=== PATIENT | female | born 1955 | race Caucasian/White ===

== ENCOUNTER → 2017-01-17 | Outpatient (REF) | payer BC ==
[2017-01-17 14:28] LABS: URIC ACID 5.2 MG/DL (2.6-6.0)
== END ==
LOC: M LABNEURO 12:52
PROVIDERS: ATTEND Psychiatry & Neurology Neurology
DX: M19.90 Unspecified osteoarthritis, unspecified site (principal); G20 Parkinson's disease

== ENCOUNTER 2017-05-05 14:15 | Inpatient (IN) | payer BC ==
[~2017-05-05] VITALS: Ht 160 cm; Wt 89.9 kg
[2017-05-05] MEDS ORDERED: ROPI4TAB21 PO ×2 (14:29→18:25)
[2017-05-05] MEDS ORDERED: LEVO125T41 PO (14:29)
[2017-05-05] MEDS ORDERED: PRAV40TA2 PO (14:29)
[2017-05-05] MEDS ORDERED: MONT1GRA PO (14:29)
[2017-05-05] MEDS ORDERED: METO1TAB32 PO (14:29)
[2017-05-05] MEDS ORDERED: TRIH0.4E PO (14:29)
[2017-05-05] MEDS ORDERED: fentaNYL 100 MCG/2 ML INJECTION (J3010) IV ONE ×2 (15:15→17:00)
[2017-05-05] MEDS ORDERED: NS 500 ML IV ONE (15:15)
[2017-05-05] MEDS ORDERED: ONDANSETRON 4MG/2ML VIAL (J2405) IV ONE (15:15)
[2017-05-05 15:26] LABS: BASO % 0.5 % (0.0-1.0); EOS # 0.2 K/mm3 (0.0-0.50); LARGE UNSTAINED CELL # 0.1 K/mm3 (0.0-0.4); LARGE UNSTAINED CELL % 1.7 % (0.0-4.0); LYMPH # 1.8 K/mm3 (1.5-4.5); LYMPH % 29.6 % (24.0-44.0); MEAN CORPUSCULAR HGB CONC 33.5 g/dl (32.0-36.5); MEAN CORPUSCULAR VOLUME 83.8 fl (80.0-96.0); MONO # 0.2 K/mm3 (0.0-0.8); MONO % 3.8 % (0.0-5.0); NEUTROPHILS # 3.5 K/mm3 (1.8-7.7); NEUTROPHILS % 61.4 % (36.0-66.0); PLATELET COUNT, AUTOMATED 252 k/mm3 (150-450); RED CELL DISTRIBUTION WIDTH 14.1 % (11.5-14.5); WHITE BLOOD COUNT 5.7 K/mm3 (4.0-10.0)
[2017-05-05 15:29] LABS: INR 0.94
[2017-05-05 15:43] LABS: ALBUMIN 3.5 GM/DL (3.2-5.2); ALBUMIN/GLOBULIN RATIO 1.13 (1.00-1.93); ALKALINE PHOSPHATASE 63 U/L (45-117); ALT/SGPT 19 U/L (12-78); ANION GAP 10 MEQ/L (8-16); AST/SGOT 15 U/L (15-37); BILIRUBIN,DIRECT < 0.1 MG/DL (0.0-0.2); BILIRUBIN,TOTAL 0.2 MG/DL (0.2-1.0); BLOOD UREA NITROGEN 15 MG/DL (7-18); CALCIUM LEVEL 9.5 MG/DL (8.8-10.2); CARBON DIOXIDE LEVEL 28 MEQ/L (21-32); CHLORIDE LEVEL 106 MEQ/L (98-107); CREATININE FOR GFR 1.01 MG/DL (0.55-1.02); GLOMERULAR FILTRATION RATE 59.1 (>45); GLUCOSE, FASTING 101 MG/DL (80-110); POTASSIUM SERUM 3.5 MEQ/L (3.5-5.1); SODIUM LEVEL 144 MEQ/L (136-145); TOTAL PROTEIN 6.6 GM/DL (6.4-8.2)
[2017-05-05] MEDS ORDERED: ISOVUE-370 76% 100ML VIAL (Q9967) As Ordered ONE (16:11)
[2017-05-05] MEDS ORDERED: MORPHINE 2 MG/ML 1ML SYRINGE IV ONE (17:00)
--- NOTE | 2017-05-05 17:20 | REP ---
CT of the abdomen and pelvis with IV contrast, without bowel contrast: Comparison is 02/17/2006. The visualized lower lung polo demonstrate curvilinear scarring in the lower lobes. There is a calcified granuloma in the left lower lobe. These are unchanged. There is a 40 mm cyst at the inferior tip of the hepatic right lobe, not present previously. The previously identified cyst in the hepatic left lobe is not as well demonstrated today. The liver is otherwise unremarkable. The gallbladder, pancreas and spleen are unremarkable except for splenic calcified granulomas. The adrenals and kidneys are unremarkable. The abdominal aorta is unremarkable except for occasional calcified atheroma. There is no retroperitoneal adenopathy or mass. There is an anastomotic surgical suture ring in a proximal ascending colon compatible with colonic resection. The appendix is not identified. There is no pericolonic inflammation or abscess. There appear to be tethered small bowel loops in the left lower quadrant on coronal image 32. The small bowel loops proximal to this appear to be dilated. The small bowel loops distal to this appear to be nondilated. This may represent partial bowel obstruction. There is no no pneumoperitoneum or ascites. Pelvis: There is a hysterectomy. The vaginal cuff and adnexa are unremarkable. There are surgical clips in the adnexa bilaterally. There is no ascites or adenopathy. Impression: There has been partial colon resection in the ascending colon. There there are tethered small bowel in the left lower quadrant. The bowel proximal to this appears distended. Bowel distal to this is not distended. This may represent partial small bowel obstruction. There is an hepatic cyst as described. There is a hysterectomy and there are surgical clips in the adnexa. Hepatic cyst. There are two midline ventral hernias containing omental fat but no bowel, unchanged from the prior study, one at the umbilicus and the other just above the umbilicus. Signed by Alex Multani MD 05/05/2017 05:11 P
[2017-05-05] MEDS ORDERED: METO1TAB87 PO (18:16)
[2017-05-05] MEDS ORDERED: MONT10TA2 PO (18:16)
[2017-05-05] MEDS ORDERED: TRIH2TAB3 PO (18:25)
[2017-05-05] MEDS ORDERED: TRIA37.53 PO (18:25)
[2017-05-05] MEDS ORDERED: B COTAB3 PO (18:25)
[2017-05-05] MEDS ORDERED: OMEP20CA3 PO (18:25)
[2017-05-05] MEDS ORDERED: VITA-121 PO (18:25)
[2017-05-05] MEDS ORDERED: ASPI325T PO (18:25)
[2017-05-05] MEDS ORDERED: COLA100C5 PO (18:25)
[2017-05-05] MEDS ORDERED: MORPHINE 2 MG/ML 1ML SYRINGE IV PRN ×2 (20:45)
[2017-05-05] MEDS ORDERED: DOCUSATE SODIUM 100 MG CAP PO PRN (20:45)
[2017-05-05] MEDS ORDERED: ACETAMINOPHEN TAB 650MG DOSE (2X325MG) PO PRN (20:45)
[2017-05-05] MEDS ORDERED: METOPROLOL TART 25 MG TABLET PO SCH (21:00)
[2017-05-05] MEDS ORDERED: rOPINIRole 1MG TAB PO ONE (21:00)
[2017-05-05] MEDS: KCL 20MEQ IN D5/0.45NS 1000ML 1,000 ML IV SCH (21:30)
[2017-05-05 21:56] LABS: MAGNESIUM LEVEL 2.2 MG/DL (1.8-2.4)
[2017-05-05] MEDS ORDERED: IPRATROPIUM 0.5MG/ALBUTEROL 2.5MG INH SOL UD 3ML (DUONEB)(J7620) NEB PRN (22:15)
[2017-05-05 22:22] VITALS: BP 140/83
[2017-05-05] MEDS: TRIHEXYPHENIDYL 2 MG TAB PO SCH (23:41)
[2017-05-05] MEDS: PRAVASTATIN 20 MG TAB PO SCH (23:42)
[2017-05-05] MEDS: SENNA 8.6 MG TAB (SENOKOT) PO SCH (23:42)
[2017-05-05] MEDS: HEPARIN SOD (PORCINE) 5000 UNITS/ML VIAL SC SCH (23:43)
[2017-05-06 06:00] VITALS: BP 106/57
[2017-05-06] MEDS: HEPARIN SOD (PORCINE) 5000 UNITS/ML VIAL SC SCH ×3 (06:23→21:07)
[2017-05-06] MEDS: LEVOTHYROXINE 125MCG TABLET (0.125MG) PO SCH (06:23)
[2017-05-06 06:24] LABS: BASO % 0.2 % (0.0-1.0); EOS # 0.1 K/mm3 (0.0-0.50); EOS % 1.5 % (0.0-3.0); LARGE UNSTAINED CELL # 0.1 K/mm3 (0.0-0.4); LARGE UNSTAINED CELL % 1.2 % (0.0-4.0); LYMPH # 1.5 K/mm3 (1.5-4.5); MEAN CORPUSCULAR HEMOGLOBIN 28.2 pg (27.0-33.0); MEAN CORPUSCULAR HGB CONC 33.3 g/dl (32.0-36.5); MEAN CORPUSCULAR VOLUME 84.6 fl (80.0-96.0); MONO # 0.4 K/mm3 (0.0-0.8); MONO % 5.3 % (0.0-5.0); NEUTROPHILS # 5.7 K/mm3 (1.8-7.7); NEUTROPHILS % 73.8 % (36.0-66.0); PLATELET COUNT, AUTOMATED 238 k/mm3 (150-450); RED CELL DISTRIBUTION WIDTH 14.4 % (11.5-14.5); WHITE BLOOD COUNT 7.7 K/mm3 (4.0-10.0)
[2017-05-06 06:45] LABS: ANION GAP 5 MEQ/L (8-16); BLOOD UREA NITROGEN 14 MG/DL (7-18); CARBON DIOXIDE LEVEL 32 MEQ/L (21-32); CHLORIDE LEVEL 104 MEQ/L (98-107); CREATININE FOR GFR 0.95 MG/DL (0.55-1.02); GLOMERULAR FILTRATION RATE > 60.0 (>45); GLUCOSE, FASTING 107 MG/DL (80-110); POTASSIUM SERUM 3.2 MEQ/L (3.5-5.1); SODIUM LEVEL 141 MEQ/L (136-145)
[2017-05-06] MEDS: ONDANSETRON 4MG/2ML VIAL (J2405) IV PRN (07:57)
[2017-05-06] MEDS ORDERED: rOPINIRole 1MG TAB PO ONE (09:00)
[2017-05-06] MEDS: ROPINIROLE 4 MG PO SCH ×2 (09:00→21:08)
--- NOTE | 2017-05-06 09:51 | REP ---
KUB, ABDOMEN AND PELVIS: KUB film of abdomen and pelvis is performed. There a couple of moderately dilated small bowel loops in the left upper quadrant. There is moderate fecal material distally in the colon. There is contrast material in the bladder from recent CT scan. Abdominal clips are seen in the pelvis. There are degenerative changes of the spine. IMPRESSION: There are a couple of moderately dilated small bowel loops persisting in the left upper quadrant again suggesting some degree of small bowel obstruction. Signed by Alex Barnes MD 05/06/2017 04:40 P
[2017-05-06] MEDS: SENNA 8.6 MG TAB (SENOKOT) PO SCH ×2 (09:58→21:07)
[2017-05-06] MEDS: VITAMIN B COMPLEX/VIT C CAP PO SCH (09:58)
[2017-05-06] MEDS: TRIHEXYPHENIDYL 2 MG TAB PO SCH (09:58)
[2017-05-06] MEDS: MONTELUKAST 10 MG TAB PO SCH (09:58)
[2017-05-06] MEDS: DYAZIDE 37.5/25 CAP (TRIAM/HCTZ) PO SCH (09:59)
[2017-05-06] MEDS: PANTOPRAZOLE 40MG INJ (PROTONIX) (C9113) IV SCH (10:00)
[2017-05-06] MEDS: MIRALAX *UNIT DOSE* 17GM PACKET PO SCH (10:00)
[2017-05-06] MEDS: KCL 20MEQ IN D5/0.45NS 1000ML 1,000 ML IV SCH ×2 (10:00→21:08)
[2017-05-06] MEDS: VITAMIN D 1,000 INTERNATIONAL UNITS TABLET PO SCH (10:00)
--- NOTE | 2017-05-06 12:37 | HPE ---
DATE OF ADMISSION: 05/05/2017 TIME: Patient was seen at roughly 2000 PRIMARY CARE PROVIDER: Dr. Perkins. GENERAL SURGEON: Dr. Turner. CHIEF COMPLAINT: Nausea, vomiting, and abdominal pain. 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 Patient admits to chronic constipation, usually has a bowel movement once every 1-2 weeks and usually a bowel movement is associated with back pain; however, this time patient stated that she is having abdominal pain, which is abnormal for her. She stated the pain was 9/10 and it was sharp and constant and worse with movement. She was also very nauseous and has not been eating or drinking for the past 2 days. Patient stated that the last bowel movement was about 7 days ago and it was dark looking, which was normal for her. Otherwise, patient denies any fever or chills, any chest pain, trouble breathing, any problem with urination, blood in the urine, dysuria. Denies any recent traveling, sick contact. Denies any recent weight change. ALLERGIES: No known drug allergies. MEDICATIONS: - aspirin 325 mg one tablet by mouth daily as needed - B complex one tablet by mouth daily - vitamin D3 1000 units one tablet by mouth daily - Colace 200 mg one tablet by mouth nightly - hydrochlorothiazide with triamterene one tablet by mouth daily - levothyroxine 125 mcg by mouth daily - metoprolol 25 mg one tablet by mouth twice a day - montelukast 10 mg one tablet by mouth daily - omeprazole 20 mg one tablet by mouth twice a day - pravastatin 40 mg one tablet by mouth nightly - ropinirole 4 mg by mouth every morning - ropinirole extended release 8 mg by mouth nightly - trihexyphenidyl 2 mg by mouth three times a day PAST MEDICAL HISTORY: Includin. Chronic constipation after bowel resection. 2. Abdominal hernia from surgery. 3. Parkinson disease. 4. Asthma. 5. Osteoarthritis. 6. Hypothyroidism after resection of the thyroid due to Hurthle cell carcinoma. 7. Hyperlipidemia. 8. Bradycardia. PAST SURGICAL HISTORY: Includin. Bowel resection with part of small bowel and cecum and possibly ascending colon due to obstruction from endometrial cyst. It was done by Dr. Johnny ham in 1995. 2. Hysterectomy. 3. Thyroid resection after Hurthle cell carcinoma of the thyroid. SOCIAL HISTORY: Patient lives with her . Does not smoke, drink or use any drugs. FAMILY HISTORY: Patient's mother had uterine cancer at the age of 38, also diabetes. Her sister also had diabetes. Father at 64. REVIEW OF SYSTEMS: GENERAL: Patient denies any recent traveling or sick contact. Any fever or chills. Denies any dizziness. HEENT: Denies any changes with vision, smell, hearing or taste. CARDIOVASCULAR: Denies any chest pain, trouble breathing. PULMONARY: Denies any trouble breathing, any lung issues. GASTROINTESTINAL (GI): Admits to severe abdominal pains and chronic constipation. Also admits to nausea, vomiting, started for the past 2 days. Denies any blood in the vomitus, however. In addition, patient's vomitus appears to be coffee colored. Per patient, it was due to patient was drinking coffee this morning. Denies any blood in the stool. Last bowel movement was 7 days ago. Per patient, she has a bowel movement every 1-2 weeks. GENITOURINARY (): Denies any dysuria, blood in the urine, burning on urination. MUSCULOSKELETAL: Admits to chronic back pains, especially when she is about to have a bowel movement. ENDOCRINE: Admits to hypothyroidism after thyroid resection. HEMATOLOGY/ONCOLOGY: Patient did have a history of Hurthle cell carcinoma of the thyroid. However, denies any ease of bruising, any bleeding anywhere. Denies any weight loss. NEUROLOGICAL: Denies any change of sensations. Admits to chronically weaker on the left side. Per patient, it was due to parkinsonism. PSYCHIATRIC: Denies any anxiety, depression. PHYSICAL EXAMINATION: VITAL SIGNS: Temperature 97.5, pulse 57, respirations 18, blood pressure 126/50, oxygen was saturating at 97% on room air. GENERAL: Patient is a pleasant, obese, elderly female who was alert, awake, and oriented times three. Does not appear to be in distress, lying comfortably in bed with head elevated at 35-degree angle. HEENT: Normocephalic, atraumatic. Extraocular motor intact. Mucosa moist. NECK: Supple, no neck lymphadenopathy. CARDIOVASCULAR: Bradycardic, normal S1, S2. No murmurs. LUNGS: Clear to auscultation bilaterally. No wheezing, rales or rhonchi. ABDOMEN: Positive bowel sounds, soft, nontender. No peritoneal signs. No ecchymosis. Obese. Bowel sounds were hyperactive. EXTREMITIES: No edema, clubbing, or cyanosis. SKIN: Warm and dry. NEUROLOGIC: Cranial nerves II-XII intact. Patient does have mild weakness on her left side. LABORATORY DATA: WBC 5.7, hemoglobin 11.8, hematocrit 35.3 with platelet count of 252, and MCV of 83.8. Sodium 144, potassium 3.5, chloride 106, bicarbonate 28, anion gap 10, BUN 15, creatinine 1.1, GFR 59.1, fasting glucose 101, lactic acid 0.9, calcium 9.5, total bilirubin 0.2, direct bilirubin less than 0.1, AST 15, ALT 19, alkaline phosphatase 63, total CK 230, CK-MB 6.7, troponin less than 0.02, total protein 6.6, albumin 3.5, lipase 111. PT 12.6, INR 0.94. Urinalysis was negative. Patient had a CT of abdomen and pelvis with IV contrast only. Shows partial colon resection in the ascending colon and there is tethered small bowel in the left lower quadrant. Bowel proximal to this appeared to be distended. Bowel distal to this was not distended, and gives presentation of partial small bowel obstruction. There is a hepatic cyst and patient was status post hysterectomy. There are two midline ventral hernias containing omental fat, but no bowel, unchanged from prior study. ASSESSMENT AND PLAN: 62-year-old female with multiple comorbidities, most significantly severe chronic constipation, parkinsonism, asthma, arthritis, hypothyroidism, hyperlipidemia, presented with: 1. Severe abdominal pain with nausea, vomiting. CT of abdomen and pelvis shows partial small bowel obstruction. General surgery has been consulted. Will follow their recommendations. Continue patient on nothing by mouth. Intravenous (IV) fluid with K20 half-normal saline and D5 at a rate of 80 mL/h. Start patient on a regular bowel regimen with Colace and senna. Pain control with IV morphine 2 mg as needed and 2 mg every 4 hours as needed. 2. Chronic constipation. Patient does use Colace with senna at baseline. I have started additional bowel regimen and pending further management per general surgery. 3. Abdominal hernia from previous surgery. No issues from CT of abdomen and pelvis. Will continue to monitor. 4. Bradycardia with ventricular rate of 46. Previous EKG back in 2013 patient's heart rate was 51. Will hold patient's beta ceci for now and continue to monitor patient. We will also order echocardiogram to assess patient for any cardiomyopathy. 5. Possible coronary artery disease, however, patient denied. Patient was on beta ceci, statin and aspirin. Will hold aspirin currently due to possible procedure. Will resume patient's aspirin if confirmed no procedure. 6. History of asthma. Continue as needed DuoNeb. Patient does not require oxygen currently. 7. Osteoarthritis. Continue as needed morphine. 8. Hypothyroidism. Continue Synthroid. 9. Hyperlipidemia. Continue statin. 10. Deep venous thrombosis (DVT) prophylaxis on heparin 5000 units subcutaneously every 8 hours due to no signs of bleeding. Will hold heparin if there are any signs of bleeding, however. 11. Fluid, electrolyte, and diet. Patient is on K20, D5 half-normal saline running at 80 mL/h. Will correct any electrolyte abnormalities as needed and start patient on nothing by mouth, for sips and medications for now due to possible procedure. DISPOSITION: General surgeon, Dr. Uribe has been consulted and will follow his recommendation. Will keep patient nothing by mouth and conservative management at this point. Patient's symptom does not appear to be severe. Patient has been discussed with attending doctor, Dr. Walker. My preceptor for this patient encounter was Dr. Kevin Walker. The preceptor was physically present in the building during the encounter and was fully available as needed. All aspects of the patient interview, examination, medical decision making process, and medical care plan development were reviewed and approved by the preceptor. The preceptor is aware and concurs with the plan as stated in the body of this note and will attest to such by his/her co-signature.
[2017-05-06] MEDS: KCL 10MEQ IN 100ML SWI (KRUN) 10 MEQ in APPROPRIATE DILUENT 1 EA IV SCH ×4 (13:46→15:03)
[2017-05-06 14:00] VITALS: BP 126/61
--- NOTE | 2017-05-06 14:26 | IPN ---
DATE: 05/06/2017 SUBJECTIVE: The patient is seen and examined in the room today. Per patient, since the colon surgery and hysterectomy she has been having very abnormal bowel movement patterns, usually she will have about one bowel movement around every 10 days. Currently, the patient is in the hospital because she has not had a bowel movement for 10 days and she is also experiencing acute abdominal pain. Per patient, the pain is sharp and started yesterday during rest and it has been persistent until she arrived to the emergency room and received the pain medications. This kind of pain has never happened before. THe patient has also been complaining about persistent nausea and unable to tolerate any oral here at this moment. She tried it this morning, but she would throw it right back up. OBJECTIVE: VITAL SIGNS: Temperature is 97.9, pulse is 71, respiratory rate 20, blood pressure 106/57, pulse oximetry 97% on room air. GENERAL: Mild to moderate distress secondary to persistent nausea and abdominal discomfort. HEENT: Normocephalic, atraumatic. Extraocular motors are grossly intact. CARDIOVASCULAR: Positive S1, S2. Regular rate. LUNGS: Clear to auscultation bilaterally. ABDOMEN: I cannot reproduce the pain during physical examination. The patient had pain medications. Abdomen is soft. Hypoactive bowel sounds. EXTREMITIES: No edema. No cyanosis. LABORATORY DATA: WBC is 7.7, hemoglobin is 11, hematocrit 33, platelet count is 238. Sodium is 141, potassium 3.2, chloride is 104, carbon dioxide 32, BUN 14, creatinine 0.95, GFR greater than 60, fasting glucose 107, calcium is 9. ASSESSMENT AND PLAN: 1. Partial small bowel obstruction. The patient is on IV support. I reviewed the patient's home medications. I will try to minimize oral medications to minimal; however, the patient still needs to be on Synthroid and also on Parkinson's disease treatment. If the patient cannot tolerate those pills, I will discontinue those. General surgeon, Dr. Mendoza, has been consulted. We appreciate his assistance. 2. Hypokalemia secondary to nausea and vomiting. Currently unable to tolerate significant oral intake. We will give potassium supplement through IV. 3. Constipation, status post hysterectomy and colectomy. At baseline, the patient has one bowel movement approximately every 10 days. It has been 10 days since the last bowel movement. The patient had a bowel movement prep. Continue to monitor. 4. Abdominal hernia. No abnormalities found on the CT of the abdomen. 5. History of asthma. No exacerbations. 6. Osteoarthritis. 7. Hypothyroidism. On Synthroid. If the patient cannot take oral form, we will switch to IV formulation. 8. Parkinson's disease. Continue oral medications. 9. Hyperlipidemia. On statin. 10. Questionable history of coronary artery disease. The patient denies it. 11. Bradycardia on admission. The patient has a heart rate around 40 to 60. This morning, the patient's heart rate has been improved to 70s. Continue to monitor. At home, the patient is taking metoprolol tartrate 25 mg by mouth twice a day. Due to bradycardia, we will discontinue the medications for now. 12. Deep vein thrombosis (DVT) prophylaxis. The patient is on heparin. MTDD
--- NOTE | 2017-05-06 21:11 | ECHO ---
DATE OF PROCEDURE: 05/06/2017 REFERRING PHYSICIAN: Dr. Willson INDICATION: Abnormal ECG. HEIGHT: 160 cm WEIGHT: 85 kg DIMENSIONS: IVS: 1.1 LV: 4.2 LVPW: 1.1 LA: 3.6 Aorta: 3.2 FINDINGS: The study is of fair technical quality. Left ventricle is normal size and systolic function with estimated left ventricle ejection fraction (LVEF) around 60-65%. No segmental wall motion abnormalities are appreciated. Right ventricle is also normal size and systolic function. Left atrium is on upper limits normal size. Right atrium is probably normal. Trivial pericardial effusion is noted. Aortic valve is minimally sclerotic but has normal mobility. Mitral, tricuspid and pulmonic valves appear grossly normal. Inferior vena cava is normal size. Aortic root is normal. Aortic arch and abdominal aorta were not well seen. Doppler interrogation reveals no significant aortic stenosis or insufficiency. There is trace mitral insufficiency and no significant tricuspid insufficiency. Trace pulmonic insufficiency also seen. Mitral inflow pattern and tissue Doppler imaging of mitral annulus reveal normal diastolic function. CONCLUSIONS: 1. Study is of acceptable technical quality. 2. Normal left ventricle (LV) size and systolic function of probably normal diastolic function. 3. No significant valvular disease. 4. Normal central venous pressure. 5. Unable to estimate pulmonary artery pressure. COMMENT: Subacute bacterial endocarditis (SBE) prophylaxis is not recommended. Study does not provide obvious explanation for abnormal ECG. MTDD
[2017-05-06 22:00] VITALS: BP 127/62
[2017-05-07] MEDS: ONDANSETRON 4MG/2ML VIAL (J2405) IV PRN ×3 (05:17→21:25)
[2017-05-07 06:00] VITALS: BP 126/59
[2017-05-07] MEDS ORDERED: LevoFLOXacin 750 MG TABLET PO SCH (06:00)
[2017-05-07] MEDS: HEPARIN SOD (PORCINE) 5000 UNITS/ML VIAL SC SCH ×3 (06:05→21:08)
[2017-05-07] MEDS: LEVOTHYROXINE 125MCG TABLET (0.125MG) PO SCH (06:05)
[2017-05-07 06:26] LABS: BASO % 0.1 % (0.0-1.0); EOS # 0.1 K/mm3 (0.0-0.50); EOS % 0.8 % (0.0-3.0); LARGE UNSTAINED CELL # 0.1 K/mm3 (0.0-0.4); LARGE UNSTAINED CELL % 1.3 % (0.0-4.0); LYMPH % 14.2 % (24.0-44.0); MEAN CORPUSCULAR HGB CONC 33.2 g/dl (32.0-36.5); MEAN CORPUSCULAR VOLUME 84.4 fl (80.0-96.0); MONO # 0.4 K/mm3 (0.0-0.8); MONO % 5.2 % (0.0-5.0); NEUTROPHILS # 5.7 K/mm3 (1.8-7.7); NEUTROPHILS % 78.3 % (36.0-66.0); PLATELET COUNT, AUTOMATED 254 k/mm3 (150-450); RED CELL DISTRIBUTION WIDTH 13.9 % (11.5-14.5); WHITE BLOOD COUNT 7.3 K/mm3 (4.0-10.0)
[2017-05-07 06:35] LABS: ANION GAP 8 MEQ/L (8-16); BLOOD UREA NITROGEN 11 MG/DL (7-18); CALCIUM LEVEL 8.7 MG/DL (8.8-10.2); CARBON DIOXIDE LEVEL 29 MEQ/L (21-32); CHLORIDE LEVEL 103 MEQ/L (98-107); CREATININE FOR GFR 0.93 MG/DL (0.55-1.02); GLOMERULAR FILTRATION RATE > 60.0 (>45); GLUCOSE, FASTING 125 MG/DL (80-110); POTASSIUM SERUM 3.7 MEQ/L (3.5-5.1); SODIUM LEVEL 140 MEQ/L (136-145)
--- NOTE | 2017-05-07 09:35 | IPNPDOC ---
Subjective General Date/Time Seen The patient was seen on 05/07/17 at 09:32. Subject Chief Complaint/History The patient is a 62-year-old female admitted with a reason for visit of Small Bowel Obstruction. Reports no more abdominal cramping since evening, still feels somewhat bloated, no flatus or bms reported, mild nausea. Current Medications Current Medications Current Medications Acetaminophen (Tylenol Tab) 650 mg Q4HP PRN PO MILD PAIN OR FEVER; Start at 20:45; Stop 06/04/17 at 20:44 Albuterol/ Ipratropium (Duoneb (Ipr 0.5mg/Alb 2.5mg)) 3 ml Q2HP PRN NEB SOB/ WHEEZING; Start 05/05/17 at 22:15; Stop 06/04/17 at 22:14 Docusate Sodium (Colace) 200 mg BID PO ; Start 05/07/17 at 09:00; Stop 06/04/17 at 20:44 Docusate Sodium (Colace) 200 mg BIDP PRN PO CONSTIPATION; Start 05/05/17 at 20: 45; Stop 05/07/17 at 09:00; Status DC Heparin Sodium (Porcine) (Heparin) 5,000 units Q8H SC Last administered on 05/07 06:05; Start 05/05/17 at 22:00; Stop 05/10/17 at 21:59 Home Med (Med Rec Complete!) ASDIRECTED XX ; Start 05/05/17 at 18:30; Stop at 18:30; Status DC Levofloxacin (Levaquin) 750 mg DAILY@06 PO ; Start 05/07/17 at 06:00; Stop 05/07 at 06:00; Status DC Levothyroxine Sodium (Synthroid) 125 mcg DAILY@0600 PO Last administered on 06:05; Start 05/06/17 at 06:00; Stop 06/05/17 at 05:59 Metoprolol Tartrate (Lopressor) 25 mg BID PO ; Start 05/05/17 at 21:00; Stop at 22:06; Status DC Miscellaneous (Unresolved Patient Own Med Order) SEE LABEL COMMENTS UNRESOLVED XX ; Start 05/05/17 at 00:01; Stop 05/06/17 at 10:57; Status DC Montelukast Sodium (Singulair) 10 mg DAILY PO Last administered on 05/06/17 09 :58; Start 05/06/17 at 09:00; Stop 06/05/17 at 08:59 Morphine Sulfate (Morphine Sulfate Inj) 2 mg Q2HP PRN IV BREAKTHROUGH PAIN; Start 05/05/17 at 20:45; Stop 05/12/17 at 20:44 Morphine Sulfate (Morphine Sulfate Inj) 2 mg Q4HP PRN IV PAIN; Start 05/05/17 at 20:45; Stop 05/12/17 at 20:44 Ondansetron HCl (ZOFRAN INJection) 4 mg Q6HP PRN IV NAUSEA OR VOMITING Last administered on 05/07/17 05:17; Start 05/05/17 at 20:45; Stop 06/04/17 at 20:44 Pantoprazole Sodium (Protonix) 40 mg Q24H IV Last administered on 05/06/17 10: 00; Start 05/06/17 at 09:00; Stop 06/05/17 at 08:59 Patient Own Medication (Patient'S Own Med) ROPINIROLE ER 4MG TABL... QAM PO ; Start 05/06/17 at 09:00; Stop 06/05/17 at 08:59 Patient Own Medication (Patient'S Own Med) ROPINIROLE ER 4MG TABL... QHS PO Last administered on 05/06/17 21:08; Start 05/06/17 at 21:00; Stop 06/05/17 at 20:59 Polyethylene Glycol (Miralax) 1 pkt DAILY PO Last administered on 05/06/17 10: 00; Start 05/06/17 at 09:00; Stop 06/05/17 at 08:59 Potassium Chloride 10 meq/ IV Miscellaneous Supplies 100 ml @ 100 mls/hr Q1H IV Last administered on 05/06/17 15:03; Start 05/06/17 at 14:00; Stop at 15:59; Status DC Potassium Chloride/Dextrose/ Sod Cl 1,000 ml @ 80 mls/hr [id number] IV Last administered on 05/06/17 21:08; Start 05/05/17 at 20:45; Stop 06/04/17 at 20:44 Pravastatin Sodium (Pravachol) 40 mg QHS PO Last administered on 05/05/17 23: 42; Start 05/05/17 at 21:00; Stop 06/04/17 at 20:59; Status Future hold Senna (Senokot) 1 tab BID PO Last administered on 05/06/17 21:07; Start at 21:00; Stop 06/04/17 at 20:59 Triamterene/HCTZ (Dyazide 37.5-25 Mg) 1 ea DAILY PO Last administered on 09:59; Start 05/06/17 at 09:00; Stop 06/05/17 at 08:59 Trihexyphenidyl HCl (Artane) 2 mg TID PO Last administered on 05/06/17 09:58; Start 05/05/17 at 21:00; Stop 06/04/17 at 20:59; Status Future hold Vitamin B Complex/ Vitamin C (Therapeutic B Complex w/C) 1 cap DAILY PO Last administered on 05/06/17 09:58; Start 05/06/17 at 09:00; Stop 06/05/17 at 08:59 ; Status Future hold Vitamin D (Vitamin D) 1,000 units DAILY PO Last administered on 05/06/17 10:00 ; Start 05/06/17 at 09:00; Stop 06/05/17 at 08:59; Status Future hold Allergies Coded Allergies: No Known Allergies (Verified , 03/25/03) Objective Physical Examination Examination GENERAL APPEARANCE:Patient seen, laying in bed, awake, alert, and oriented. Comfortable, in no acute distress. SKIN: Warm and moist. HEENT: Normocephalic, atraumatic. [place] palpebral conjunctiva, anicteric sclerae. Lips and mucosa appear moist. NECK: Supple, no thyromegaly. No obvious jugular venous distention. LUNGS: Clear to auscultation bilaterally. No wheezing appreciated. HEART: No chest wall abnormalities. Regular rate and rhythm with no murmurs appreciated. ABDOMEN: Abdomen is round, soft, moderately distended, hypoactive bowel sounds, nontender on palpation . . EXTREMITIES: Extremities have no deformities. No edema identified., (+)tremors Vital Signs Vital Signs Date Time Temp Pulse Resp B/P (MAP) Pulse Ox O2 Delivery O2 Flow Rate FiO2 8/19/17 06:00 97.1 60 18 126/59 (81) 95 Room Air I&Os I&O- Last 24 Hours up to 6 AM 05/07/17 06:00 Intake Total 1080 ml Output Total 1500 ml Balance -420 ml Laboratory Data Labs 24H Laboratory Tests 2 05/07/17 06:05: White Blood Count 7.3, Red Blood Count 4.24, Hemoglobin 11.9L, Hematocrit 35.8L , Mean Corpuscular Volume 84.4, Mean Corpuscular Hemoglobin 28.0, Mean Corpuscular Hemoglobin Concent 33.2, Red Cell Distribution Width 13.9, Platelet Count 254, Neutrophils (%) (Auto) 78.3H, Lymphocytes (%) (Auto) 14.2L, Monocytes (%) (Auto) 5.2H, Eosinophils (%) (Auto) 0.8, Basophils (%) (Auto) 0.1 , Neutrophils # (Auto) 5.7, Lymphocytes # (Auto) 1.0L, Monocytes # (Auto) 0.4, Eosinophils # (Auto) 0.1, Basophils # (Auto) 0.0, Large Unclassified Cells % 1.3 , Large Unclassified Cells # 0.1, Anion Gap 8, Glomerular Filtration Rate > 60.0 , Blood Urea Nitrogen 11, Creatinine 0.93, Sodium Level 140, Potassium Level 3.7 , Chloride Level 103, Carbon Dioxide Level 29, Calcium Level 8.7L CBC/BMP Laboratory Tests 05/07/17 06:05 Red Blood Count 4.24, Mean Corpuscular Volume 84.4, Mean Corpuscular Hemoglobin 28.0, Mean Corpuscular Hemoglobin Concent 33.2, Red Cell Distribution Width 13.9 , Neutrophils (%) (Auto) 78.3 H, Lymphocytes (%) (Auto) 14.2 L, Monocytes (%) ( Auto) 5.2 H, Eosinophils (%) (Auto) 0.8, Basophils (%) (Auto) 0.1, Neutrophils # (Auto) 5.7, Lymphocytes # (Auto) 1.0 L, Monocytes # (Auto) 0.4, Eosinophils # (Auto) 0.1, Basophils # (Auto) 0.0, Calcium Level 8.7 L Impression Small bowel obstruction chronic constipation Patient was instructed to ambulate to hallways today Continue with set bowel regimen Will check xray tomorrow If no bowel function may need surgery next week. Plan / VTE VTE Prophylaxis Ordered?: Yes KRISHNA COFFMAN MD May 07, 2017 09:34
[2017-05-07] MEDS: ROPINIROLE 4 MG PO SCH ×2 (09:36→21:08)
[2017-05-07] MEDS: PANTOPRAZOLE 40MG INJ (PROTONIX) (C9113) IV SCH (09:36)
[2017-05-07] MEDS: MIRALAX *UNIT DOSE* 17GM PACKET PO SCH (09:38)
[2017-05-07] MEDS: TRIHEXYPHENIDYL 2 MG TAB PO SCH ×3 (09:38→21:25)
[2017-05-07] MEDS: DYAZIDE 37.5/25 CAP (TRIAM/HCTZ) PO SCH (09:39)
[2017-05-07] MEDS: VITAMIN B COMPLEX/VIT C CAP PO SCH (09:39)
[2017-05-07] MEDS: SENNA 8.6 MG TAB (SENOKOT) PO SCH ×2 (09:39→21:08)
[2017-05-07] MEDS: MONTELUKAST 10 MG TAB PO SCH (09:39)
[2017-05-07] MEDS: DOCUSATE SODIUM 100 MG CAP PO SCH ×2 (09:40→21:08)
[2017-05-07] MEDS: KCL 20MEQ IN D5/0.45NS 1000ML 1,000 ML IV SCH ×2 (09:40→21:09)
[2017-05-07] MEDS: VITAMIN D 1,000 INTERNATIONAL UNITS TABLET PO SCH (09:40)
--- NOTE | 2017-05-07 11:53 | ECGEPIP ---
Stationary ECG Study [facility] Test Date: 2017-05-06 Pat Name: ESTEFANY MURILLO Department: Room: [place] [address] Gender: F Rental Salesperson: JORGE : 1955 Requested By: JAMAICA RAGLAND Order Number: [id number] Reading MD: Manuel Botello Measurements Intervals [place] Rate: 50 P: 52 WI: 143 QRS: 25 QRSD: 102 T: 55 QT: 457 QTc: 420 Interpretive Statements SINUS BRADYCARDIA NON SPECIFIC STT ABNORMALITIES SIMILAR 12/21/13 Electronically Signed On 05-07-2017 11:53:21 EDT by Manuel Botello
[2017-05-07 14:00] VITALS: BP 127/75
--- NOTE | 2017-05-07 15:34 | IPN ---
DATE OF VISIT: 05/07/2017 SUBJECTIVE: The patient is seen and examined in the room today. The patient still complains about persistent nausea, but the frequency of vomiting has improved. The patient still does not have any bowel movements. Today may be more than 11 days without any bowel movement, which is not unusual for her, and still complains about abdominal discomfort. OBJECTIVE: VITAL SIGNS: Temperature is 97.1, pulse is 60, respiration 18, blood pressure 126/59, pulse oximetry 95% in room air. GENERAL: Moderate distress secondary to persistent nausea and abdominal discomfort. Alert and oriented times three. HEENT: Normocephalic, atraumatic. Extraocular motor grossly intact. CARDIOVASCULAR: Positive S1, S2. Regular rate. LUNGS: Clear to auscultation bilaterally. ABDOMEN: I cannot reproduce pain during the physical examination. Abdomen is soft. Hypoactive bowel sounds. EXTREMITIES: No edema. No sign of cyanosis. LABORATORY DATA: WBC is 7.3, hemoglobin 11.9, hematocrit 35.8, platelet count is 254. Sodium is 140, potassium 3.7, chloride is 103, carbon dioxide 29, BUN 11, creatinine 0.93, GFR greater than 60, fasting glucose 125, calcium is 8.7. ASSESSMENT AND PLAN: 1. Partial small bowel obstruction. The patient is on intravenous (IV) support. The patient is continuing to have nausea and abdominal discomfort. General surgeon, Dr. Mendoza, has been consulted. According to the recommendation, will continue medical management. If the patient does not show any improvement of symptoms, there is a possibility for surgery next week. 2. Hypokalemia secondary to frequent nausea and vomiting. The patient had a supplement. Now, potassium is within normal range. 3. Constipation, status post hysterectomy and colectomy. At the baseline, the patient has one bowel movement approximately every 10 days. Currently, the patient has a partial small bowel obstruction. 4. Abdominal hernia. Found on CT abdomen. 5. History of asthma. No exacerbation. Breathing comfortably in room air. Does not require oxygen. 6. Osteoarthritis. 7. Hypothyroidism. On Synthroid. 8. Parkinson disease. Continue oral medications. 9. Dyslipidemia. On statin. 10. Questionable history of coronary artery disease. 11. Bradycardia on admission. The patient had a repeat electrocardiogram (EKG) done yesterday evening. EKG showed sinus bradycardia without any other abnormalities. Currently, the heart rate is around 60s. Echocardiogram was performed. No abnormality was detected. 12. Deep vein thrombosis (DVT) prophylaxis. The patient is on heparin. MTDD
[2017-05-07] MEDS ORDERED: LORazepam 2 MG/ML VIAL (J2060) IV PRN (16:00)
[2017-05-07] MEDS ORDERED: ALPRAZolam 0.25 MG TAB PO PRN (16:00)
[2017-05-07] MEDS: PRAVASTATIN 20 MG TAB PO SCH (21:08)
[2017-05-07 22:00] VITALS: BP 135/77
[2017-05-08 06:00] VITALS: BP 124/59
[2017-05-08] MEDS: HEPARIN SOD (PORCINE) 5000 UNITS/ML VIAL SC SCH ×3 (06:24→23:16)
[2017-05-08] MEDS: LEVOTHYROXINE 125MCG TABLET (0.125MG) PO SCH (06:24)
[2017-05-08] MEDS: ONDANSETRON 4MG/2ML VIAL (J2405) IV PRN (06:28)
[2017-05-08 06:43] LABS: BASO % 0.3 % (0.0-1.0); EOS # 0.1 K/mm3 (0.0-0.50); EOS % 2.2 % (0.0-3.0); LARGE UNSTAINED CELL # 0.1 K/mm3 (0.0-0.4); LARGE UNSTAINED CELL % 1.1 % (0.0-4.0); LYMPH # 1.4 K/mm3 (1.5-4.5); LYMPH % 21.4 % (24.0-44.0); MEAN CORPUSCULAR HEMOGLOBIN 28.2 pg (27.0-33.0); MEAN CORPUSCULAR HGB CONC 33.8 g/dl (32.0-36.5); MEAN CORPUSCULAR VOLUME 83.2 fl (80.0-96.0); MONO # 0.5 K/mm3 (0.0-0.8); MONO % 7.8 % (0.0-5.0); NEUTROPHILS # 4.1 K/mm3 (1.8-7.7); NEUTROPHILS % 67.2 % (36.0-66.0); PLATELET COUNT, AUTOMATED 240 k/mm3 (150-450); RED CELL DISTRIBUTION WIDTH 13.8 % (11.5-14.5)
[2017-05-08 06:53] LABS: CREATININE FOR GFR 1.05 MG/DL (0.55-1.02); GLOMERULAR FILTRATION RATE 56.5 (>45); POTASSIUM SERUM 3.5 MEQ/L (3.5-5.1)
[2017-05-08] MEDS: VITAMIN D 1,000 INTERNATIONAL UNITS TABLET PO SCH (09:00)
[2017-05-08] MEDS: VITAMIN B COMPLEX/VIT C CAP PO SCH (09:00)
[2017-05-08] MEDS: PANTOPRAZOLE 40MG INJ (PROTONIX) (C9113) IV SCH (10:06)
[2017-05-08] MEDS: DOCUSATE SODIUM 100 MG CAP PO SCH ×2 (10:07→23:14)
[2017-05-08] MEDS: DYAZIDE 37.5/25 CAP (TRIAM/HCTZ) PO SCH (10:07)
[2017-05-08] MEDS: SENNA 8.6 MG TAB (SENOKOT) PO SCH ×2 (10:07→23:14)
[2017-05-08] MEDS: MONTELUKAST 10 MG TAB PO SCH (10:07)
[2017-05-08] MEDS: TRIHEXYPHENIDYL 2 MG TAB PO SCH ×3 (10:07→23:15)
[2017-05-08] MEDS: MIRALAX *UNIT DOSE* 17GM PACKET PO SCH (10:08)
[2017-05-08] MEDS: ROPINIROLE 4 MG PO SCH ×2 (10:08→23:15)
[2017-05-08] MEDS: KCL 20MEQ IN D5/0.45NS 1000ML 1,000 ML IV SCH ×2 (10:09→23:13)
--- NOTE | 2017-05-08 10:18 | IPNPDOC ---
Subjective General Date/Time Seen The patient was seen on 05/08/17 at 10:14. Subject Chief Complaint/History The patient is a 62-year-old female admitted with a reason for visit of Small Bowel Obstruction. Patient finally agreed to have ngt placed after recurent vomitting. feels much better today,nausea improved. no abdominal discomfort but still not passing flatus. Current Medications Current Medications Current Medications Acetaminophen (Tylenol Tab) 650 mg Q4HP PRN PO MILD PAIN OR FEVER; Start at 20:45; Stop 06/04/17 at 20:44 Albuterol/ Ipratropium (Duoneb (Ipr 0.5mg/Alb 2.5mg)) 3 ml Q2HP PRN NEB SOB/ WHEEZING; Start 05/05/17 at 22:15; Stop 06/04/17 at 22:14 Alprazolam (Xanax) 0.25 mg Q8HP PRN PO ANXIETY; Start 05/07/17 at 16:00; Stop 05/07/17 at 16:01; Status DC Docusate Sodium (Colace) 200 mg BID PO Last administered on 05/08/17 10:07; Start 05/07/17 at 09:00; Stop 06/04/17 at 20:44 Docusate Sodium (Colace) 200 mg BIDP PRN PO CONSTIPATION; Start 05/05/17 at 20: 45; Stop 05/07/17 at 09:00; Status DC Heparin Sodium (Porcine) (Heparin) 5,000 units Q8H SC Last administered on 05/08 06:24; Start 05/05/17 at 22:00; Stop 05/10/17 at 21:59 Home Med (Med Rec Complete!) ASDIRECTED XX ; Start 05/05/17 at 18:30; Stop at 18:30; Status DC Levofloxacin (Levaquin) 750 mg DAILY@06 PO ; Start 05/07/17 at 06:00; Stop 05/07 at 06:00; Status DC Levothyroxine Sodium (Synthroid) 125 mcg DAILY@0600 PO Last administered on 06:24; Start 05/06/17 at 06:00; Stop 06/05/17 at 05:59 Lorazepam (Ativan) 0.5 mg Q6HP PRN IV AGITATION Last administered on 05/07/17 16:15; Start 05/07/17 at 16:00; Stop 05/14/17 at 15:59 Metoprolol Tartrate (Lopressor) 25 mg BID PO ; Start 05/05/17 at 21:00; Stop at 22:06; Status DC Miscellaneous (Unresolved Patient Own Med Order) SEE LABEL COMMENTS UNRESOLVED XX ; Start 05/05/17 at 00:01; Stop 05/06/17 at 10:57; Status DC Montelukast Sodium (Singulair) 10 mg DAILY PO Last administered on 05/08/17 10 :07; Start 05/06/17 at 09:00; Stop 06/05/17 at 08:59 Morphine Sulfate (Morphine Sulfate Inj) 2 mg Q2HP PRN IV BREAKTHROUGH PAIN; Start 05/05/17 at 20:45; Stop 05/12/17 at 20:44 Morphine Sulfate (Morphine Sulfate Inj) 2 mg Q4HP PRN IV PAIN; Start 05/05/17 at 20:45; Stop 05/12/17 at 20:44 Ondansetron HCl (ZOFRAN INJection) 4 mg Q6HP PRN IV NAUSEA OR VOMITING Last administered on 05/08/17 06:28; Start 05/05/17 at 20:45; Stop 06/04/17 at 20:44 Pantoprazole Sodium (Protonix) 40 mg Q24H IV Last administered on 05/08/17 10: 06; Start 05/06/17 at 09:00; Stop 06/05/17 at 08:59 Patient Own Medication (Patient'S Own Med) ROPINIROLE ER 4MG TABL... QAM PO Last administered on 05/08/17 10:08; Start 05/06/17 at 09:00; Stop 06/05/17 at 08:59 Patient Own Medication (Patient'S Own Med) ROPINIROLE ER 4MG TABL... QHS PO Last administered on 05/07/17 21:08; Start 05/06/17 at 21:00; Stop 06/05/17 at 20:59 Polyethylene Glycol (Miralax) 1 pkt DAILY PO Last administered on 05/08/17 10: 08; Start 05/06/17 at 09:00; Stop 06/05/17 at 08:59 Potassium Chloride 10 meq/ IV Miscellaneous Supplies 100 ml @ 100 mls/hr Q1H IV Last administered on 05/06/17 15:03; Start 05/06/17 at 14:00; Stop at 15:59; Status DC Potassium Chloride/Dextrose/ Sod Cl 1,000 ml @ 80 mls/hr [id number] IV Last administered on 05/08/17 10:09; Start 05/05/17 at 20:45; Stop 06/04/17 at 20:44 Pravastatin Sodium (Pravachol) 40 mg QHS PO Last administered on 05/07/17 21: 08; Start 05/05/17 at 21:00; Stop 06/04/17 at 20:59; Status Future hold Senna (Senokot) 1 tab BID PO Last administered on 05/08/17 10:07; Start at 21:00; Stop 06/04/17 at 20:59 Triamterene/HCTZ (Dyazide 37.5-25 Mg) 1 ea DAILY PO Last administered on 10:07; Start 05/06/17 at 09:00; Stop 06/05/17 at 08:59 Trihexyphenidyl HCl (Artane) 2 mg TID PO Last administered on 05/08/17 10:07; Start 05/05/17 at 21:00; Stop 06/04/17 at 20:59; Status Future hold Vitamin B Complex/ Vitamin C (Therapeutic B Complex w/C) 1 cap DAILY PO Last administered on 05/07/17 09:39; Start 05/06/17 at 09:00; Stop 06/05/17 at 08:59 ; Status Future hold Vitamin D (Vitamin D) 1,000 units DAILY PO Last administered on 05/07/17 09:40 ; Start 05/06/17 at 09:00; Stop 06/05/17 at 08:59; Status Future hold Allergies Coded Allergies: No Known Allergies (Verified , 03/25/03) Objective Physical Examination Examination GENERAL APPEARANCE:Patient seen, laying in bed, awake, alert, and oriented. Comfortable, in no acute distress. SKIN: Warm and dry HEENT: Normocephalic, atraumatic. [place] palpebral conjunctiva, anicteric sclerae. Lips and mucosa appear moist. NGT in place. NECK: Supple, no thyromegaly. No obvious jugular venous distention. LUNGS: Clear to auscultation bilaterally. No wheezing appreciated. HEART: No chest wall abnormalities. Regular rate and rhythm with no murmurs appreciated. ABDOMEN: Abdomen is round, soft, a lot less distended today, nontender on palpation. EXTREMITIES: no edema Vital Signs Vital Signs Date Time Temp Pulse Resp B/P (MAP) Pulse Ox O2 Delivery O2 Flow Rate FiO2 05/08/17 06:00 98.9 64 18 124/59 (80) 93 05/07/17 14:00 Room Air I&Os I&O- Last 24 Hours up to 6 AM 05/08/17 06:00 Intake Total 2830 ml Output Total 2075 ml Balance 755 ml Laboratory Data Labs 24H Laboratory Tests 2 05/08/17 06:12: White Blood Count 6.0, Red Blood Count 4.15, Hemoglobin 11.7L, Hematocrit 34.5L , Mean Corpuscular Volume 83.2, Mean Corpuscular Hemoglobin 28.2, Mean Corpuscular Hemoglobin Concent 33.8, Red Cell Distribution Width 13.8, Platelet Count 240, Neutrophils (%) (Auto) 67.2H, Lymphocytes (%) (Auto) 21.4L, Monocytes (%) (Auto) 7.8H, Eosinophils (%) (Auto) 2.2, Basophils (%) (Auto) 0.3 , Neutrophils # (Auto) 4.1, Lymphocytes # (Auto) 1.4L, Monocytes # (Auto) 0.5, Eosinophils # (Auto) 0.1, Basophils # (Auto) 0.0, Large Unclassified Cells % 1.1 , Large Unclassified Cells # 0.1, Anion Gap 8, Glomerular Filtration Rate 56.5, Blood Urea Nitrogen 13, Creatinine 1.05H, Sodium Level 140, Potassium Level 3.5 , Chloride Level 100, Carbon Dioxide Level 32, Calcium Level 9.0 CBC/BMP Laboratory Tests 05/08/17 06:12 Red Blood Count 4.15, Mean Corpuscular Volume 83.2, Mean Corpuscular Hemoglobin 28.2, Mean Corpuscular Hemoglobin Concent 33.8, Red Cell Distribution Width 13.8 , Neutrophils (%) (Auto) 67.2 H, Lymphocytes (%) (Auto) 21.4 L, Monocytes (%) ( Auto) 7.8 H, Eosinophils (%) (Auto) 2.2, Basophils (%) (Auto) 0.3, Neutrophils # (Auto) 4.1, Lymphocytes # (Auto) 1.4 L, Monocytes # (Auto) 0.5, Eosinophils # (Auto) 0.1, Basophils # (Auto) 0.0, Calcium Level 9.0 Impression Small bowel obstruction Improved with decompression but still no bowel function. REview of her xray today show improvement of bowel distention, maybe still a loop of small bowel distended on the left abdomen. Continue with NGT decompression. ambulate patient. will repeat xray tomorrow. Dr. Uribe will be back tomorrow and will decided whether she will need surgery depending on how she is doing. Plan / VTE VTE Prophylaxis Ordered?: Yes KRISHNA COFFMAN MD May 08, 2017 10:18
--- NOTE | 2017-05-08 13:50 | CR ---
DATE OF CONSULTATION: 05/06/2017 REASON FOR CONSULTATION: Partial small-bowel obstruction. HISTORY OF PRESENT ILLNESS: The patient is a 62-year-old female who underwent a partial small bowel and ascending colon resection back in the late with Dr. Turner due to endometriosis causing a bowel obstruction. She denies any problems since then. However, she is presenting today with complaints of abdominal pain, nausea, and some vomiting that started the night before. She normally has constipation and will only have about one bowel movement a week. However, she has gone over a week now since her last bowel movement and started to develop increased abdominal pains and distention yesterday. This morning since she has been in the hospital, she has not had any nausea or vomiting. No bowel movements and has not been passing any gas since admission. Her laboratories and vital signs are all stable, but her CT scan does show tethered small bowel loops in left lower quadrant suspicious for partial versus complete small bowel obstruction. She has not had any problems with small bowel obstructions prior to this, at least nothing that she has ever been to a hospital for or needed any procedures done for. PAST MEDICAL HISTORY: Gastroesophageal reflux disease (GERD), asthma, hypothyroidism, Parkinson disease. PAST SURGICAL HISTORY: Colon resection, hysterectomy, thyroidectomy. ALLERGIES: None. HOME MEDICATIONS: Please see medical record. SOCIAL HISTORY: Denies drug, alcohol, tobacco abuse. FAMILY HISTORY: Noncontributory. REVIEW OF SYSTEMS: Pertinent positives and negatives as stated in the history of present illness (HPI). PHYSICAL EXAMINATION: General: The patient is alert and oriented times three. No acute stress. Vital signs: Temperature 99.2, pulse 63, respirations 20, blood pressure 140/83, pulse oximetry 98% on room air. HEENT: Pupils equal round and react to light and accommodation. Heart: S1, S2, regular rate and rhythm. Lungs: Clear to auscultation bilaterally. Abdomen: Soft, nondistended, nontender. Extremities: No clubbing, cyanosis, or edema. LABORATORY DATA: White count 5.7 yesterday and 7.7 this morning, hemoglobin is 11, platelets 238, lactic acid 0.9, potassium 3.2, creatinine 0.95. IMAGING STUDIES: CT abdomen and pelvis on admission shows a partial colon resection of the ascending colon, tethered small bowel in the left lower quadrant. Bowel proximal to this appears to be slightly distended. Bowel distal to this is not distended. This may represent a partial small-bowel obstruction. There are two midline ventral hernias containing omental fat but no bowel, unchanged from prior study, one at the umbilicus and the other just above the umbilicus. ASSESSMENT AND PLAN: A 62-year-old female, signs and symptoms consistent with partial versus complete small bowel obstruction, likely secondary to adhesions from previous surgeries. Recommendation at this time is to keep on ice chips, sips of water, encourage ambulation, replace electrolytes, and treat with intravenous (IV) fluids and antibiotics. We will continue to monitor her for about 72 hours and see if she will open up on her own. If she does not open up, then she may require diagnostic laparoscopy with lysis of adhesions, probably as early as Tuesday morning if needed. Thank you for the consult. We will continue to follow the patient with you.
--- NOTE | 2017-05-08 13:55 | IPN ---
DATE: 05/08/2017 SUBJECTIVE: The patient seen and examined in the room today. The patient first had NG tube insertion yesterday in the afternoon. Shortly after the NG tube placement the patient showed significant anxiety and discomfort. One trial of IV Ativan was given. The patient stated it calmed her down and made her able to tolerate the NG tube. Continued to have nausea, but no abdominal pain. Still does not have bowel movements and patient has not passed any gas. It has been approximately 12 days since her last bowel movement. Yesterday since the NG tube insertion the patient has been draining greater than 2 liters of gastric juice. OBJECTIVE: VITAL SIGNS: Temperature is 98.9, pulse is 64, respirations 18, blood pressure 124/59, pulse oximetry 93% on room air. GENERAL: No acute distress. Alert and oriented times three. HEENT: NG tube in place. Normocephalic, atraumatic. CARDIOVASCULAR: Positive S1, S2. Regular rate. LUNGS: Clear to auscultation bilaterally. ABDOMEN: Mildly distended. Hypoactive bowel sounds. Abdomen is soft. EXTREMITIES: No edema. No sign of cyanosis. LABORATORY DATA: WBC 6, hemoglobin 11.7, hematocrit 34.5. Platelet count is 240. Sodium is 140, potassium 3.85. Chloride 100. Carbon dioxide 32, BUN 13, creatinine 1.05. GFR is 56.5. Fasting glucose 116. Calcium 9. ASSESSMENT AND PLAN: 1. Small bowel obstruction. The patient has IV support. The patient has NG tube for decompression. Will continue her for nausea. General surgeon has been consulted. We appreciate their recommendation. Continue with medical management. 2. Hypokalemia due to frequent nausea and vomiting. Nausea and vomiting has been controlled. The patient's potassium returned to normal range with supplement. 3. Constipation. Status post hysterectomy and colectomy. At baseline, the patient has a bowel movement every 7 to 10 days. Currently the patient has small bowel obstruction. 4. Abdominal hernia. 5. History of asthma. No exacerbation. Does not require oxygen supplementation. 6. Osteoporosis. 7. Hypothyroidism. On Synthroid. 8. Parkinson's disease. On her oral medications 9. Dyslipidemia. On statin. 10. Question of history of coronary artery disease. 11. Bradycardia on admission. When patient presented to emergency room, the patient had a heart rate between 40 to 50s. Currently her average heart rate is around 60s. Medical team to management. 12. Deep venous thrombosis (DVT) prophylaxis, on heparin.
[2017-05-08 14:00] VITALS: BP 114/61
[2017-05-08 22:00] VITALS: BP 115/62
[2017-05-08] MEDS: PRAVASTATIN 20 MG TAB PO SCH (23:15)
[2017-05-09] VITALS (8 sets, daily range): BP systolic 108–132; BP diastolic 55–73
[2017-05-09 06:40] LABS: BASO % 0.4 % (0.0-1.0); EOS # 0.1 K/mm3 (0.0-0.50); EOS % 2.5 % (0.0-3.0); LARGE UNSTAINED CELL # 0.1 K/mm3 (0.0-0.4); LARGE UNSTAINED CELL % 1.2 % (0.0-4.0); LYMPH # 0.8 K/mm3 (1.5-4.5); LYMPH % 12.8 % (24.0-44.0); MEAN CORPUSCULAR HGB CONC 33.1 g/dl (32.0-36.5); MEAN CORPUSCULAR VOLUME 84.4 fl (80.0-96.0); MONO # 0.4 K/mm3 (0.0-0.8); MONO % 7.4 % (0.0-5.0); NEUTROPHILS # 4.2 K/mm3 (1.8-7.7); NEUTROPHILS % 75.6 % (36.0-66.0); PLATELET COUNT, AUTOMATED 241 k/mm3 (150-450); RED CELL DISTRIBUTION WIDTH 13.9 % (11.5-14.5); WHITE BLOOD COUNT 5.6 K/mm3 (4.0-10.0)
[2017-05-09 06:49] LABS: CALCIUM LEVEL 8.5 MG/DL (8.8-10.2); CREATININE FOR GFR 1.02 MG/DL (0.55-1.02); GLOMERULAR FILTRATION RATE 58.5 (>45); POTASSIUM SERUM 3.5 MEQ/L (3.5-5.1)
[2017-05-09] MEDS: LEVOTHYROXINE 125MCG TABLET (0.125MG) PO SCH (07:03)
[2017-05-09] MEDS: HEPARIN SOD (PORCINE) 5000 UNITS/ML VIAL SC SCH ×3 (07:04→21:26)
--- NOTE | 2017-05-09 07:35 | REP ---
Abdominal series: Three views. History: Followup small bowel obstruction. Comparison study May 06, 2017. Findings: A nasogastric tube is seen with a tip in the gastric fundus. There is a dextroconvex rotoscoliotic curve. Scattered surgical clips are seen in the pelvis. There is a solitary loop of moderately dilated small bowel in the left mid abdomen. This is an improvement from yesterday's radiograph, which showed several loops. Upright radiograph shows two air-fluid levels. Impression: Some improvement in bowel gas pattern. Persistent dilated small bowel loop is seen in the left mid abdomen. Signed by Jack Ni MD 05/09/2017 08:38 A
--- NOTE | 2017-05-09 08:35 | REP ---
KUB: Single view. History: Followup small bowel obstruction. Comparison films May 08, 2017. Findings: NG tube is seen in the gastric fundus region. There is still two or three loops of air and fluid-filled moderately dilated small bowel in the left upper quadrant consistent with persistent small bowel obstruction. There is a paucity of distal gas. Some stool persists in the right pelvis. There is gas in the rectum. Signed by Jack Ni MD 05/09/2017 08:39 A
[2017-05-09] MEDS: PANTOPRAZOLE 40MG INJ (PROTONIX) (C9113) IV SCH (08:59)
[2017-05-09] MEDS: SENNA 8.6 MG TAB (SENOKOT) PO SCH ×2 (09:00→21:27)
[2017-05-09] MEDS: TRIHEXYPHENIDYL 2 MG TAB PO SCH ×3 (09:00→21:26)
[2017-05-09] MEDS: MONTELUKAST 10 MG TAB PO SCH (09:00)
[2017-05-09] MEDS: VITAMIN B COMPLEX/VIT C CAP PO SCH (09:00)
[2017-05-09] MEDS: VITAMIN D 1,000 INTERNATIONAL UNITS TABLET PO SCH (09:00)
[2017-05-09] MEDS: DOCUSATE SODIUM 100 MG CAP PO SCH (09:00)
[2017-05-09] MEDS: ROPINIROLE 4 MG PO SCH ×2 (09:01→21:32)
[2017-05-09] MEDS: MIRALAX *UNIT DOSE* 17GM PACKET PO SCH (09:01)
[2017-05-09] MEDS: ONDANSETRON 4MG/2ML VIAL (J2405) IV PRN (09:08)
[2017-05-09] MEDS: DYAZIDE 37.5/25 CAP (TRIAM/HCTZ) PO SCH (09:13)
--- NOTE | 2017-05-09 11:45 | IPNPDOC ---
Subjective Date Seen The patient was seen on 05/09/17. Subjective Chief Complaint/HPI The patient is a 62-year-old female admitted with a reason for visit of Small Bowel Obstruction. States she has not passed lower GI gas or had a bowel movement, but is burping. Feels nauseous and vomits up clear fluids after ingestion of donny uma . No events overnight. General: Reports: Normal Appetite, Denies: Chills, Malaise Constitutional: Denies: Fever, Weakness Eyes: Denies: Pain Pulmonary: Denies: Dyspnea, Cough Cardiovascular: Denies: Chest Pain, Palpitations, Edema, Lt Headedness Gastrointestinal: Reports: Nausea, Vomiting, Constipation, Denies: Abdominal Pain, Diarrhea Objective Physical Examination General Exam: Positive: Alert, Cooperative, No Acute Distress Eye Exam: Positive: Conjunctiva & lids normal ENT Exam: Positive: Atraumatic, Mucous membr. moist/pink, Other ENT (NG tube in place) Neck Exam: Positive: Supple, Negative: JVD Chest Exam: Positive: Clear to auscultation, Normal air movement, Negative: Rales, Rhonchi, Wheezing Heart Exam: Positive: Rate Normal, Regular Rhythm, Normal S1, Normal S2, Negative: Murmurs Abdomen Exam: Positive: BS Hypoactive, Soft Extremity Exam: Positive: Normal pulses, Negative: Clubbing, Cyanosis, Edema Neuro Exam: Positive: Normal Speech Psych Exam: Positive: Mood NL, Oriented x 3 RAD Interpretation STUDY: Abdomen X-ray Rad Actions: Report Reviewed RAD Interpretation: Other Result Comments: (NG tube is seen in the gastric fundus region. There is still two or three loops of air and fluid-filled moderately dilated small bowel in the left upper quadrant consistent with persistent small bowel obstruction. There is a paucity of distal gas. Some stool persists in the right pelvis. There is gas in the rectum.) Assessment /Plan Assessment 1. Small bowel obstruction. Pt on IV support. NG tube present for decompression. General surgeon has been consulted. We appreciate their recommendation. Continue with medical management. 2. Hypokalemia due to frequent nausea and vomiting. Potassium returned to normal range with supplement. 3. Constipation. Status post hysterectomy and colectomy. At baseline, the patient has a bowel movement every 7 to 10 days. Currently the patient has small bowel obstruction. 4. Abdominal hernia. 5. History of asthma. No exacerbation. Does not require oxygen supplementation. 6. Osteoporosis. 7. Hypothyroidism. On Synthroid. 8. Parkinson's disease. On her oral medications 9. Dyslipidemia. On statin. 10. Question of history of coronary artery disease. 11. Bradycardia on admission. When patient presented to emergency room, the patient had a heart rate between 40 to 50s. Currently her average heart rate is around 60s. Medical team to management. 12. Deep venous thrombosis (DVT) prophylaxis, on heparin. Plan/VTE VTE Prophylaxis Ordered?: Yes VS, I&O, 24H, Fishbone Vital Signs/I&O Vital Signs Date Time Temp Pulse Resp B/P (MAP) Pulse Ox O2 Delivery O2 Flow Rate FiO2 05/09/17 06:00 98.1 56 17 114/63 (80) 92 Room Air I&O- Last 24 Hours up to 6 AM 05/09/17 06:00 Intake Total 1080 ml Output Total 2425 ml Balance -1345 ml Laboratory Data 24H LABS Laboratory Tests 2 05/09/17 05:35: White Blood Count 5.6, Red Blood Count 4.34, Hemoglobin 12.1, Hematocrit 36.6, Mean Corpuscular Volume 84.4, Mean Corpuscular Hemoglobin 28.0, Mean Corpuscular Hemoglobin Concent 33.1, Red Cell Distribution Width 13.9, Platelet Count 241, Neutrophils (%) (Auto) 75.6H, Lymphocytes (%) (Auto) 12.8L, Monocytes (%) (Auto) 7.4H, Eosinophils (%) (Auto) 2.5, Basophils (%) (Auto) 0.4 , Neutrophils # (Auto) 4.2, Lymphocytes # (Auto) 0.8L, Monocytes # (Auto) 0.4, Eosinophils # (Auto) 0.1, Basophils # (Auto) 0.0, Large Unclassified Cells % 1.2 , Large Unclassified Cells # 0.1, Anion Gap 8, Glomerular Filtration Rate 58.5, Blood Urea Nitrogen 15, Creatinine 1.02, Sodium Level 139, Potassium Level 3.5, Chloride Level 99, Carbon Dioxide Level 32, Calcium Level 8.5L CBC/BMP Laboratory Tests 05/09/17 05:35 Red Blood Count 4.34, Mean Corpuscular Volume 84.4, Mean Corpuscular Hemoglobin 28.0, Mean Corpuscular Hemoglobin Concent 33.1, Red Cell Distribution Width 13.9 , Neutrophils (%) (Auto) 75.6 H, Lymphocytes (%) (Auto) 12.8 L, Monocytes (%) ( Auto) 7.4 H, Eosinophils (%) (Auto) 2.5, Basophils (%) (Auto) 0.4, Neutrophils # (Auto) 4.2, Lymphocytes # (Auto) 0.8 L, Monocytes # (Auto) 0.4, Eosinophils # (Auto) 0.1, Basophils # (Auto) 0.0, Calcium Level 8.5 L GME ATTESTATION GME ATTESTATION My preceptor for this patient encounter was physically present in the building during the encounter and was fully available. As needed, all aspects of the patient interview, examination, medical decision making process, and medical care plan development were reviewed and approved by the preceptor. Preceptor is aware and concurs with the plan as stated in the body of this note and will attest to such by his/her cosignature. ISABEL JARA DO May 09, 2017 07:23
[2017-05-09] MEDS: KCL 20MEQ IN D5/0.45NS 1000ML 1,000 ML IV SCH (12:23)
[2017-05-09] MEDS ORDERED: ONDANSETRON 4MG/2ML VIAL (J2405) As Ordered ONE (14:13)
[2017-05-09] MEDS ORDERED: KETOROLAC 60 MG/2 ML VIAL (J1885) As Ordered ONE (14:13)
[2017-05-09] MEDS ORDERED: ROCURONIUM BROMIDE 50 MG/5 ML VIAL/SYRINGE As Ordered ONE (14:13)
[2017-05-09] MEDS ORDERED: MIDAZOLAM INJ 2 MG/2 ML VIAL (J2250) As Ordered ONE (14:13)
[2017-05-09] MEDS ORDERED: PROPOFOL 200 MG/20 ML VIAL As Ordered ONE (14:13)
[2017-05-09] MEDS ORDERED: dexameTHASONE 4 MG/ML 1ML VIAL (J1100) As Ordered ONE ×2 (14:13→15:20)
[2017-05-09] MEDS ORDERED: fentaNYL 250 MCG/5 ML INJECTION (J3010) As Ordered ONE (14:13)
[2017-05-09] MEDS ORDERED: LIDOCAINE 2% INJ 100 MG/5 ML SDV (FOR ANES.) As Ordered ONE (14:13)
[2017-05-09] MEDS ORDERED: ceFAZolin 2 GM/D5W 50 ML IV BAG (J0690) As Ordered ONE (14:17)
[2017-05-09] MEDS ORDERED: BUPIVACAINE/EPIN 0.25% 30 ML VIAL As Ordered ONE (14:38)
[2017-05-09] MEDS ORDERED: NEOSTIGMINE 1MG/ML 5 ML SYRINGE (J2710) As Ordered ONE (15:20)
[2017-05-09] MEDS ORDERED: GLYCOPYRROLATE INJ 0.2 MG/ML 2 ML VIAL As Ordered ONE (15:20)
[2017-05-09] MEDS ORDERED: HYDROmorphone HCL 2 MG/ML 1ML VIAL (J1170) As Ordered ONE (15:21)
[2017-05-09] MEDS ORDERED: VECURONIUM BROMIDE 10 MG VIAL As Ordered ONE (15:34)
[2017-05-09] MEDS ORDERED: fentaNYL 100 MCG/2 ML INJECTION (J3010) IV PRN (17:15)
[2017-05-09] MEDS ORDERED: PERCOCET 5MG/325MG TAB PO PRN (17:15)
[2017-05-09] MEDS ORDERED: LR 1,000 ML IV SCH (17:15)
[2017-05-09] MEDS ORDERED: ONDANSETRON 4MG/2ML VIAL (J2405) IV PRN (17:15)
[2017-05-09] MEDS ORDERED: MORPHINE 2 MG/ML 1ML SYRINGE IV PRN (17:15)
--- NOTE | 2017-05-09 19:34 | ECGEPIP ---
Stationary ECG Study [facility] - ED Test Date: 2017-05-05 Pat Name: ESTEFANY MURILLO Department: Room: - Gender: F [employer]: hang : 1955 Requested By: NELLA Coles Order Number: [id number] Reading MD: Roc Lion Measurements Intervals [place] Rate: 46 P: 91 GA: 146 QRS: 15 QRSD: 97 T: 33 QT: 490 QTc: 429 Interpretive Statements [employer] WITH [employer] RBBB NONSPECIFIC ST & T-WAVE ABNORMALITY BASELINE ARTIFACT AFFECTS INTERPRETATION Electronically Signed On 05-09-2017 19:34:27 EDT by Roc Lion
[2017-05-10 02:00] VITALS: BP 106/55
[2017-05-10 06:00] VITALS: BP 100/59
[2017-05-10] MEDS: HEPARIN SOD (PORCINE) 5000 UNITS/ML VIAL SC SCH ×3 (06:27→22:22)
[2017-05-10] MEDS: LEVOTHYROXINE 125MCG TABLET (0.125MG) PO SCH (06:27)
[2017-05-10] MEDS: KCL 20MEQ IN D5/0.45NS 1000ML 1,000 ML IV SCH ×2 (06:29→17:45)
[2017-05-10 07:18] LABS: BASO % 0.1 % (0.0-1.0); EOS % 0.2 % (0.0-3.0); LARGE UNSTAINED CELL # 0.1 K/mm3 (0.0-0.4); LARGE UNSTAINED CELL % 1.9 % (0.0-4.0); LYMPH # 0.8 K/mm3 (1.5-4.5); LYMPH % 15.7 % (24.0-44.0); MEAN CORPUSCULAR HEMOGLOBIN 28.2 pg (27.0-33.0); MEAN CORPUSCULAR HGB CONC 33.2 g/dl (32.0-36.5); MEAN CORPUSCULAR VOLUME 84.9 fl (80.0-96.0); MONO # 0.3 K/mm3 (0.0-0.8); MONO % 6.9 % (0.0-5.0); NEUTROPHILS # 3.6 K/mm3 (1.8-7.7); NEUTROPHILS % 75.3 % (36.0-66.0); PLATELET COUNT, AUTOMATED 249 k/mm3 (150-450); RED CELL DISTRIBUTION WIDTH 13.7 % (11.5-14.5); WHITE BLOOD COUNT 4.8 K/mm3 (4.0-10.0)
[2017-05-10 07:38] LABS: CALCIUM LEVEL 8.5 MG/DL (8.8-10.2); CREATININE FOR GFR 1.13 MG/DL (0.55-1.02); GLOMERULAR FILTRATION RATE 51.9 (>45); POTASSIUM SERUM 3.7 MEQ/L (3.5-5.1)
[2017-05-10] MEDS: MIRALAX *UNIT DOSE* 17GM PACKET PO SCH (09:22)
[2017-05-10] MEDS: TRIHEXYPHENIDYL 2 MG TAB PO SCH ×3 (09:22→20:18)
[2017-05-10] MEDS: SENNA 8.6 MG TAB (SENOKOT) PO SCH ×2 (09:22→20:18)
[2017-05-10] MEDS: PANTOPRAZOLE 40MG INJ (PROTONIX) (C9113) IV SCH (09:22)
[2017-05-10] MEDS: ROPINIROLE 4 MG PO SCH ×2 (09:23→20:17)
--- NOTE | 2017-05-10 09:49 | IPNPDOC ---
Subjective Date Seen The patient was seen on 05/10/17. Subjective Chief Complaint/HPI The patient is a 62-year-old female admitted with a reason for visit of Small Bowel Obstruction. Pt is s/p SBO surgery for lysis of adhesions, post-op day 1. States she is feeling better and nausea has resolved. Has not passed flatus or had BM, but is burping. Sore around incision sites from surgery. No acute complaints or events overnight. General: Denies: Chills, Night Sweats, Fatigue Constitutional: Denies: Chills, Fever, Weakness ENT: Denies: Head Aches, Ear Pain, Dysphagia Skin: Denies: Bruising Pulmonary: Denies: Dyspnea, Cough Cardiovascular: Denies: Chest Pain, Palpitations, Orthopnea, Edema, Lt Headedness Gastrointestinal: Reports: Constipation, Denies: Nausea, Vomiting, Diarrhea Hematologic: Denies: Bruising, Bleeding Excessively Neurological: Denies: Weakness, Numbness Psych: Reports: Mood Normal Objective Physical Examination General Exam: Positive: Alert, Cooperative, No Acute Distress Eye Exam: Positive: Conjunctiva & lids normal ENT Exam: Positive: Atraumatic, Mucous membr. moist/pink, Other ENT (NG tube in place) Neck Exam: Positive: Supple, Negative: JVD Chest Exam: Positive: Clear to auscultation, Normal air movement, Negative: Rales, Rhonchi, Wheezing Heart Exam: Positive: Rate Normal, Regular Rhythm, Normal S1, Normal S2, Negative: Murmurs Abdomen Exam: Positive: BS Hypoactive, Soft Extremity Exam: Positive: Normal pulses, Negative: Clubbing, Cyanosis, Edema Neuro Exam: Positive: Normal Speech Psych Exam: Positive: Mood NL, Oriented x 3 Assessment /Plan Assessment 1. Small bowel obstruction. Pt on IV support. NG tube present for decompression. Had surgery for lysis of adhesions yesterday. Appreciate general surgery's recommendation. Continue with medical management and continue monitoring urine output. 2. Constipation. Status post hysterectomy and colectomy, and laparoscopic lysis of adhesions. At baseline, the patient has a bowel movement every 7 to 10 days. Continue monitoring the patient and s/p SBO surgery. Encourage ambulation. 3. Hypokalemia due to frequent nausea and vomiting. Potassium returned to normal range with supplement. 4. Abdominal hernia. 5. History of asthma. No exacerbation. Does not require oxygen supplementation. 6. Osteoporosis. 7. Hypothyroidism. On Synthroid. 8. Parkinson's disease. On her oral medications 9. Question of history of coronary artery disease. 10. Bradycardia on admission. When patient presented to emergency room, the patient had a heart rate between 40 to 50s. Currently her average heart rate is around 70s. Medical team to management. 11. Deep venous thrombosis (DVT) prophylaxis, on heparin. Plan/VTE VTE Prophylaxis Ordered?: Yes VS, I&O, 24H, Fishbone Vital Signs/I&O Vital Signs Date Time Temp Pulse Resp B/P (MAP) Pulse Ox O2 Delivery O2 Flow Rate FiO2 05/10/17 06:00 98.6 66 18 100/59 (73) 94 Nasal Cannula 2.0 I&O- Last 24 Hours up to 6 AM 05/10/17 06:00 Intake Total 1900 ml Output Total 1145 ml Balance 755 ml Laboratory Data 24H LABS Laboratory Tests 2 05/10/17 06:28: White Blood Count 4.8, Red Blood Count 3.92L, Hemoglobin 11.1L, Hematocrit 33.3L , Mean Corpuscular Volume 84.9, Mean Corpuscular Hemoglobin 28.2, Mean Corpuscular Hemoglobin Concent 33.2, Red Cell Distribution Width 13.7, Platelet Count 249, Neutrophils (%) (Auto) 75.3H, Lymphocytes (%) (Auto) 15.7L, Monocytes (%) (Auto) 6.9H, Eosinophils (%) (Auto) 0.2, Basophils (%) (Auto) 0.1 , Neutrophils # (Auto) 3.6, Lymphocytes # (Auto) 0.8L, Monocytes # (Auto) 0.3, Eosinophils # (Auto) 0.0, Basophils # (Auto) 0.0, Large Unclassified Cells % 1.9 , Large Unclassified Cells # 0.1 05/10/17 06:29: CBC/BMP Laboratory Tests 05/10/17 06:28 Red Blood Count 3.92 L, Mean Corpuscular Volume 84.9, Mean Corpuscular Hemoglobin 28.2, Mean Corpuscular Hemoglobin Concent 33.2, Red Cell Distribution Width 13.7, Neutrophils (%) (Auto) 75.3 H, Lymphocytes (%) (Auto) 15.7 L, Monocytes (%) (Auto) 6.9 H, Eosinophils (%) (Auto) 0.2, Basophils (%) ( Auto) 0.1, Neutrophils # (Auto) 3.6, Lymphocytes # (Auto) 0.8 L, Monocytes # ( Auto) 0.3, Eosinophils # (Auto) 0.0, Basophils # (Auto) 0.0 GME ATTESTATION GME ATTESTATION My preceptor for this patient encounter was physically present in the building during the encounter and was fully available. As needed, all aspects of the patient interview, examination, medical decision making process, and medical care plan development were reviewed and approved by the preceptor. Preceptor is aware and concurs with the plan as stated in the body of this note and will attest to such by his/her cosignature. ISABEL JARA DO May 10, 2017 08:02
[2017-05-10 10:00] VITALS: BP 129/60
[2017-05-10 14:00] VITALS: BP 127/67
[2017-05-10 18:00] VITALS: BP 129/64
[2017-05-10 22:00] VITALS: BP 104/56
--- NOTE | 2017-05-11 02:53 | RO ---
DATE OF PROCEDURE: 05/09/2017 PREOPERATIVE DIAGNOSIS: Small bowel obstruction. POSTOPERATIVE DIAGNOSIS: Small bowel obstruction secondary internal hernia and multiple abdominal adhesions. PROCEDURE: Diagnostic laparoscopy with extensive lysis of adhesions and release of internal hernia. SURGEON: Dr. Alex Uribe PLANNER SCHEDULER: None. ANESTHESIA: General. ESTIMATED BLOOD LOSS: 5 mL. COMPLICATIONS: None. INDICATIONS FOR PROCEDURE: The patient is a 62-year-old female who presented on 05/05/2017 with a history of a small bowel obstruction. She has been treated medically for the past 4 days without any relief of her symptoms and no signs of any flatus or bowel movement. Because of this, recommendation was to proceed with diagnostic laparoscopy. Risks and benefits of procedure were discussed in detail with the patient. Risks including but not limited bleeding, infection, hernia formation, damage to surrounding structures and possible need for further surgery were discussed in detail with the patient. Informed consent was obtained and procedure was planned. DESCRIPTION OF PROCEDURE: The patient was brought back to operating room three after sufficient sedation and the abdomen was sterilely prepped and draped. Next, time-out was done to confirm proper patient and proper procedure. Following that, a 5 mm incision made in left upper quadrant, Veress needle was inserted and the abdomen insufflated to 15 mmHg. Next, the Veress needle was removed and a 5 mm Optiview port used to gain access to the abdomen. Once the abdomen was entered, the visible portions of the abdomen were examined. There were extensive adhesions all long the midline and throughout the entire pelvis. There was a little bit of free space on the left side. Another 5 mm port was then placed in the left mid abdomen. Next, using the Enseal, starting around the falciform, adhesions were taken down across the abdominal wall. There were two large ventral hernias identified, likely incisional, right below her previous exploratory laparotomy incision in the midline. Hernias were all reduced, adhesions were taken down through the abdominal wall superiorly and inferiorly until multiple loops of small bowel were found tethered in the lower half of the abdomen. The omentum was then carefully elevated up. There was a very dilated loop of bowel in the left lower quadrant. This was slowly retracted but appeared to be stuck underneath a bunch of loops of small bowel in the left lower quadrant. Next, two more 5 mm ports were placed in the subxiphoid and right upper quadrant. The omental adhesions to the left lower quadrant were carefully elevated up until the loop of bowel diving posteriorly. The left pelvis was examined. I was able to get a grasper underneath some omentum that was stuck to the left lower quadrant that was tethering the small bowel. This was able to be elevated up in the air and carefully opened up using the Enseal. After opening up this adhesion, the small bowel loop that was stuck down was able to be retracted up into the upper abdomen. After doing so, this dragged up a couple more loops of small bowel that were decompressed with it. These adhesions were all taken off of the dilated bowel. There was an abrupt transition zone identified here with a sharp kink. This was all freed up. The small bowel was run distal to this point, approximately 20 cm, that was all flattened, decompressed. This had to be the obstruction. Due to extensive adhesions in the pelvis, I was unable to continue to run the bowel. However, I was confident that this was the transition zone due to the obvious change in bowel caliber at this point. A few other small adhesions were taken down to help reduce the risk of this recurring. Once this was completed, the abdomen was desufflated. The skin incisions were closed with #4-0 Vicryl subcuticular sutures. The abdomen was cleaned and dried. Steri-Strips, 4x4 and tape were applied. The Justice catheter was then removed. The patient was awakened from anesthesia and sent to the post-anesthesia care unit (PACU) in stable condition.
[2017-05-11] MEDS: LEVOTHYROXINE 125MCG TABLET (0.125MG) PO SCH (05:45)
[2017-05-11] MEDS: KCL 20MEQ IN D5/0.45NS 1000ML 1,000 ML IV SCH ×3 (05:49→20:39)
[2017-05-11] MEDS: HEPARIN SOD (PORCINE) 5000 UNITS/ML VIAL SC SCH ×3 (05:49→22:31)
[2017-05-11 06:00] VITALS: BP 102/59
[2017-05-11 06:19] LABS: MEAN CORPUSCULAR HGB CONC 32.3 g/dl (32.0-36.5); MEAN CORPUSCULAR VOLUME 86.6 fl (80.0-96.0); WHITE BLOOD COUNT 5.7 K/mm3 (4.0-10.0)
[2017-05-11 06:34] LABS: ANION GAP 6 MEQ/L (8-16); BLOOD UREA NITROGEN 15 MG/DL (7-18); CALCIUM LEVEL 8.3 MG/DL (8.8-10.2); CARBON DIOXIDE LEVEL 31 MEQ/L (21-32); CHLORIDE LEVEL 105 MEQ/L (98-107); CREATININE FOR GFR 0.95 MG/DL (0.55-1.02); GLOMERULAR FILTRATION RATE > 60.0 (>45); GLUCOSE, FASTING 94 MG/DL (80-110); MAGNESIUM LEVEL 1.9 MG/DL (1.8-2.4); PHOSPHORUS LEVEL 1.8 MG/DL (2.5-4.9); POTASSIUM SERUM 3.9 MEQ/L (3.5-5.1); SODIUM LEVEL 142 MEQ/L (136-145)
[2017-05-11] MEDS: K-PHOS NEUTRAL 250MG TABLET (SOD.PHOSPHATE/POT.PHOSPHATE) PO SCH ×5 (09:00→20:40)
[2017-05-11] MEDS: PANTOPRAZOLE 40MG INJ (PROTONIX) (C9113) IV SCH (09:52)
[2017-05-11] MEDS: SENNA 8.6 MG TAB (SENOKOT) PO SCH ×2 (09:53→20:40)
[2017-05-11] MEDS: MIRALAX *UNIT DOSE* 17GM PACKET PO SCH (09:53)
[2017-05-11] MEDS: TRIHEXYPHENIDYL 2 MG TAB PO SCH ×3 (09:53→20:40)
[2017-05-11] MEDS: ROPINIROLE 4 MG PO SCH ×2 (09:53→20:40)
--- NOTE | 2017-05-11 10:31 | IPNPDOC ---
Subjective Date Seen The patient was seen on 05/11/17. Subjective Chief Complaint/HPI The patient is a 62-year-old female admitted with a reason for visit of Small Bowel Obstruction. Pt is s/p SBO surgery for lysis of adhesions, post-op day 2. No bowel movement yet, and not passing flatus. Is burping. Sore around incision sites from surgery. No acute complaints or events overnight. Tolerating clear liquids without problem. Per nursing, NGT output 150 overnight , none this morning. General: Denies: Chills, Night Sweats Constitutional: Denies: Chills, Fever, Malaise Eyes: Denies: Pain, Vision change ENT: Denies: Head Aches, Dysphagia Skin: Denies: Rash Pulmonary: Denies: Dyspnea, Cough Cardiovascular: Denies: Chest Pain, Palpitations, Edema, Lt Headedness Gastrointestinal: Reports: Constipation, Denies: Nausea, Vomiting, Diarrhea Neurological: Denies: Weakness, Numbness Psych: Reports: Mood Normal Objective Physical Examination General Exam: Positive: Alert, Cooperative, No Acute Distress Eye Exam: Positive: Conjunctiva & lids normal ENT Exam: Positive: Atraumatic, Mucous membr. moist/pink, Other ENT (NG tube in place) Neck Exam: Positive: Supple, Negative: JVD Chest Exam: Positive: Clear to auscultation, Normal air movement, Negative: Rales, Rhonchi, Wheezing Heart Exam: Positive: Rate Normal, Regular Rhythm, Normal S1, Normal S2, Negative: Murmurs Abdomen Exam: Positive: BS Hypoactive, Soft Extremity Exam: Positive: Normal pulses, Negative: Clubbing, Cyanosis, Edema Neuro Exam: Positive: Normal Speech Psych Exam: Positive: Mood NL, Oriented x 3 Assessment /Plan Assessment 1. Small bowel obstruction. Pt on IV support. NG tube present for decompression. Had surgery for lysis of adhesions 2 days ago (05/09/17). Appreciate general surgery's recommendation. Continue with medical management and continue monitoring urine & NGT output. 2. Constipation. Status post hysterectomy and colectomy, and laparoscopic lysis of adhesions and internal hernias. At baseline, the patient has a bowel movement every 7 to 10 days. Continue monitoring the patient and s/p SBO surgery. Encourage ambulation. 3. Hypophosphatemia. Phosphorus level 1.8. Replete with K-Phos 250mg tid. 4. Hypokalemia due to frequent nausea and vomiting. Potassium returned to normal range with supplement. 5. Abdominal hernia. Corrected with surgery 2 days ago. 6. History of asthma. No exacerbation. Does not require oxygen supplementation. 7. Osteoporosis. 8. Hypothyroidism. On Synthroid. 9. Parkinson's disease. On her oral medications 10. Question of history of coronary artery disease. 11. Bradycardia on admission. When patient presented to emergency room, the patient had a heart rate between 40 to 50s. Currently her average heart rate is around 60s. Medical team to management. 12. Deep venous thrombosis (DVT) prophylaxis, on heparin. Plan/VTE VTE Prophylaxis Ordered?: Yes VS, I&O, 24H, Fishbone Vital Signs/I&O Vital Signs Date Time Temp Pulse Resp B/P (MAP) Pulse Ox O2 Delivery O2 Flow Rate FiO2 05/11/17 06:00 97.7 56 18 102/59 (73) 95 05/10/17 20:24 Room Air 05/10/17 06:00 2.0 I&O- Last 24 Hours up to 6 AM 05/11/17 06:00 Intake Total 696 ml Output Total 3175 ml Balance -2479 ml Laboratory Data 24H LABS Laboratory Tests 2 05/11/17 06:05: Anion Gap 6L, Glomerular Filtration Rate > 60.0, Blood Urea Nitrogen 15, Creatinine 0.95, Sodium Level 142, Potassium Level 3.9, Chloride Level 105, Carbon Dioxide Level 31, Calcium Level 8.3L, Phosphorus Level 1.8L, Magnesium Level 1.9 CBC/BMP Laboratory Tests 05/11/17 06:05 Red Blood Count 3.64 L, Mean Corpuscular Volume 86.6, Mean Corpuscular Hemoglobin 28.0, Mean Corpuscular Hemoglobin Concent 32.3, Red Cell Distribution Width 14.0, Calcium Level 8.3 L GME ATTESTATION GME ATTESTATION My preceptor for this patient encounter was physically present in the building during the encounter and was fully available. As needed, all aspects of the patient interview, examination, medical decision making process, and medical care plan development were reviewed and approved by the preceptor. Preceptor is aware and concurs with the plan as stated in the body of this note and will attest to such by his/her cosignature. ISABEL JARA DO May 11, 2017 08:06
[2017-05-11 14:00] VITALS: BP 129/75
[2017-05-11 22:00] VITALS: BP 129/84
[2017-05-12] MEDS: LEVOTHYROXINE 125MCG TABLET (0.125MG) PO SCH (05:24)
[2017-05-12] MEDS: HEPARIN SOD (PORCINE) 5000 UNITS/ML VIAL SC SCH ×3 (05:25→21:26)
[2017-05-12 06:00] VITALS: BP 130/82
[2017-05-12 06:17] LABS: MEAN CORPUSCULAR HEMOGLOBIN 27.9 pg (27.0-33.0); MEAN CORPUSCULAR HGB CONC 33.1 g/dl (32.0-36.5); MEAN CORPUSCULAR VOLUME 84.3 fl (80.0-96.0); RED CELL DISTRIBUTION WIDTH 13.9 % (11.5-14.5); WHITE BLOOD COUNT 6.1 K/mm3 (4.0-10.0)
[2017-05-12 06:35] LABS: ANION GAP 7 MEQ/L (8-16); BLOOD UREA NITROGEN 14 MG/DL (7-18); CALCIUM LEVEL 7.9 MG/DL (8.8-10.2); CARBON DIOXIDE LEVEL 28 MEQ/L (21-32); CHLORIDE LEVEL 106 MEQ/L (98-107); CREATININE FOR GFR 0.81 MG/DL (0.55-1.02); GLOMERULAR FILTRATION RATE > 60.0 (>45); GLUCOSE, FASTING 95 MG/DL (80-110); MAGNESIUM LEVEL 1.7 MG/DL (1.8-2.4); PHOSPHORUS LEVEL 2.2 MG/DL (2.5-4.9); SODIUM LEVEL 141 MEQ/L (136-145)
[2017-05-12] MEDS: MAG SULF 1GM/100ML (MAG RUN) 1 GM in APPROPRIATE DILUENT 1 EA IV SCH ×2 (06:59→08:54)
[2017-05-12] MEDS ORDERED: SODIUM PHOSPHATE INJ 30 MMOL in D5W 500 ML IV ONE (08:00)
[2017-05-12] MEDS: SENNA 8.6 MG TAB (SENOKOT) PO SCH ×2 (08:53→20:19)
[2017-05-12] MEDS: TRIHEXYPHENIDYL 2 MG TAB PO SCH ×3 (08:53→20:19)
[2017-05-12] MEDS: MIRALAX *UNIT DOSE* 17GM PACKET PO SCH (08:53)
[2017-05-12] MEDS: PANTOPRAZOLE 40MG INJ (PROTONIX) (C9113) IV SCH (08:54)
[2017-05-12] MEDS: ROPINIROLE 4 MG PO SCH ×2 (08:54→20:19)
--- NOTE | 2017-05-12 09:15 | IPNPDOC ---
Subjective Date Seen The patient was seen on 05/12/17. Subjective Chief Complaint/HPI The patient is a 62-year-old female admitted with a reason for visit of Small Bowel Obstruction. Pt is s/p SBO surgery for lysis of adhesions, post-op day 3. Pt states she starting passing flatus yesterday evening and also had a small bowel movement with soft unformed green-brown stool. Soreness around incision sites from surgery has resolved. No acute complaints or events overnight. Tolerating clear liquids without problem. General: Reports: Normal Appetite, Denies: Chills, Night Sweats Constitutional: Denies: Chills, Fever Eyes: Denies: Pain, Vision change ENT: Denies: Head Aches Pulmonary: Denies: Dyspnea, Cough Cardiovascular: Denies: Chest Pain, Palpitations, Orthopnea, Edema, Lt Headedness Gastrointestinal: Reports: Vomiting, Denies: Nausea, Abdominal Pain, Diarrhea, Constipation, Melena, Hematochezia Neurological: Denies: Weakness, Numbness, Incoordination, Change in speech Psych: Reports: Mood Normal Objective Physical Examination General Exam: Positive: Alert, Cooperative, No Acute Distress Eye Exam: Positive: Conjunctiva & lids normal ENT Exam: Positive: Atraumatic, Mucous membr. moist/pink, Other ENT (NG tube in place) Neck Exam: Positive: Supple, Negative: JVD Chest Exam: Positive: Clear to auscultation, Normal air movement, Negative: Rales, Rhonchi, Wheezing Heart Exam: Positive: Rate Normal, Regular Rhythm, Normal S1, Normal S2, Negative: Murmurs Abdomen Exam: Positive: BS Hypoactive (improving from previous days), Soft, Other (4 surgical incision sites with gazue clean, dry, intact. No edema, erythema, ecchymosis around surgical sites.) Extremity Exam: Positive: Normal pulses, Negative: Clubbing, Cyanosis, Edema Neuro Exam: Positive: Normal Speech Psych Exam: Positive: Mood NL, Oriented x 3 Assessment /Plan Assessment 1. Small bowel obstruction. Pt on IV support. NG tube present for decompression. Had surgery for lysis of adhesions 3 days ago (05/09/17). Appreciate general surgery's recommendation. Continue with medical management and continue monitoring urine & NGT output. 2. Constipation. Status post hysterectomy and colectomy, and laparoscopic lysis of adhesions and internal hernias. At baseline, the patient has a bowel movement every 7 to 10 days. Pt had first bowel movement since admission and surgery last night. Continue monitoring and encourage ambulation. 3. Hypophosphatemia. Phosphorus level increased from 1.8 yesterday to 2.2 today with K-Phos 250mg tid given yesterday. Replete with sodium phosphate 130ml/hr today. 4. Hypomagnesemia. Level at 1.7 today. Replete with magnesium sulfate 100ml/hr. 5. Hypokalemia due to frequent nausea and vomiting. Potassium returned to normal range with supplement. 6. Abdominal hernia. Corrected with surgery 2 days ago. 7. History of asthma. No exacerbation. Does not require oxygen supplementation. 8. Osteoporosis. 9. Hypothyroidism. On Synthroid. 10. Parkinson's disease. On her oral medications 11. Question of history of coronary artery disease. 12. Bradycardia on admission. When patient presented to emergency room, the patient had a heart rate between 40 to 50s. Currently her average heart rate is around 60s. Medical team to management. 13. Deep venous thrombosis (DVT) prophylaxis, on heparin. Plan/VTE VTE Prophylaxis Ordered?: Yes VS, I&O, 24H, [facility] Vital Signs/I&O Vital Signs Date Time Temp Pulse Resp B/P (MAP) Pulse Ox O2 Delivery O2 Flow Rate FiO2 05/12/17 06:00 98.9 62 18 130/82 (98) 97 Room Air 05/10/17 06:00 2.0 I&O- Last 24 Hours up to 6 AM 05/12/17 06:00 Intake Total 840 ml Output Total 600 ml Balance 240 ml Laboratory Data 24H LABS Laboratory Tests 2 05/12/17 06:00: Anion Gap 7L, Glomerular Filtration Rate > 60.0, Blood Urea Nitrogen 14, Creatinine 0.81, Sodium Level 141, Potassium Level 4.0, Chloride Level 106, Carbon Dioxide Level 28, Calcium Level 7.9L, Phosphorus Level 2.2#L, Magnesium Level 1.7L CBC/BMP Laboratory Tests 05/12/17 06:00 Red Blood Count 3.79 L, Mean Corpuscular Volume 84.3, Mean Corpuscular Hemoglobin 27.9, Mean Corpuscular Hemoglobin Concent 33.1, Red Cell Distribution Width 13.9, Calcium Level 7.9 L GME ATTESTATION GME ATTESTATION My preceptor for this patient encounter was physically present in the building during the encounter and was fully available. As needed, all aspects of the patient interview, examination, medical decision making process, and medical care plan development were reviewed and approved by the preceptor. Preceptor is aware and concurs with the plan as stated in the body of this note and will attest to such by his/her cosignature. ISABEL JARA DO May 12, 2017 07:37
[2017-05-12 14:00] VITALS: BP 123/78
[2017-05-12] MEDS: KCL 20MEQ IN D5/0.45NS 1000ML 1,000 ML IV SCH ×2 (14:21→22:55)
[2017-05-12 22:00] VITALS: BP 142/81
[2017-05-12] MEDS: ONDANSETRON 4MG/2ML VIAL (J2405) IV PRN (23:08)
[2017-05-13] MEDS: LEVOTHYROXINE 125MCG TABLET (0.125MG) PO SCH (05:48)
[2017-05-13] MEDS: HEPARIN SOD (PORCINE) 5000 UNITS/ML VIAL SC SCH ×3 (05:48→22:25)
[2017-05-13 06:00] VITALS: BP 102/54
[2017-05-13 06:33] LABS: MEAN CORPUSCULAR HGB CONC 33.7 g/dl (32.0-36.5); MEAN CORPUSCULAR VOLUME 83.1 fl (80.0-96.0); RED CELL DISTRIBUTION WIDTH 13.9 % (11.5-14.5); WHITE BLOOD COUNT 7.2 K/mm3 (4.0-10.0)
[2017-05-13 06:50] LABS: ANION GAP 8 MEQ/L (8-16); BLOOD UREA NITROGEN 11 MG/DL (7-18); CALCIUM LEVEL 7.8 MG/DL (8.8-10.2); CARBON DIOXIDE LEVEL 27 MEQ/L (21-32); CHLORIDE LEVEL 106 MEQ/L (98-107); CREATININE FOR GFR 0.73 MG/DL (0.55-1.02); GLOMERULAR FILTRATION RATE > 60.0 (>45); GLUCOSE, FASTING 108 MG/DL (80-110); MAGNESIUM LEVEL 2.1 MG/DL (1.8-2.4); PHOSPHORUS LEVEL 2.8 MG/DL (2.5-4.9); POTASSIUM SERUM 3.8 MEQ/L (3.5-5.1); SODIUM LEVEL 141 MEQ/L (136-145)
[2017-05-13] MEDS ORDERED: CALCIUM CARBONATE 500 MG CHEW U/D PO ONE (08:00)
[2017-05-13] MEDS: ROPINIROLE 4 MG PO SCH ×2 (10:02→22:25)
[2017-05-13] MEDS: MIRALAX *UNIT DOSE* 17GM PACKET PO SCH (10:02)
[2017-05-13] MEDS: PANTOPRAZOLE 40MG INJ (PROTONIX) (C9113) IV SCH (10:03)
[2017-05-13] MEDS: TRIHEXYPHENIDYL 2 MG TAB PO SCH ×3 (10:03→22:25)
[2017-05-13] MEDS: SENNA 8.6 MG TAB (SENOKOT) PO SCH ×2 (10:03→22:25)
--- NOTE | 2017-05-13 10:58 | IPNPDOC ---
Subjective Date Seen The patient was seen on 05/13/17. Subjective Chief Complaint/HPI The patient is a 62-year-old female admitted with a reason for visit of Small Bowel Obstruction. Pt states she vomited 3 times yesterday, all due to position in bed and medication. NG tube was removed yeseterday and diet was advanced to soft diet--tolerating well. Passing gas, but no recent BM. No acute complaints or events overnight. General: Reports: Normal Appetite, Denies: Chills, Fatigue, Malaise Constitutional: Denies: Chills, Fever, Fatigue ENT: Denies: Head Aches Pulmonary: Denies: Dyspnea, Cough Cardiovascular: Denies: Chest Pain, Palpitations, Orthopnea, Edema, Lt Headedness Gastrointestinal: Reports: Nausea, Vomiting, Constipation, Denies: Abdominal Pain, Diarrhea Neurological: Denies: Weakness, Numbness, Change in speech, Confusion Psych: Reports: Mood Normal Objective Physical Examination General Exam: Positive: Alert, Cooperative, No Acute Distress Eye Exam: Positive: Conjunctiva & lids normal ENT Exam: Positive: Atraumatic, Mucous membr. moist/pink Neck Exam: Positive: Supple, Negative: JVD Chest Exam: Positive: Clear to auscultation, Normal air movement, Negative: Rales, Rhonchi, Wheezing Heart Exam: Positive: Rate Normal, Regular Rhythm, Normal S1, Normal S2, Negative: Murmurs Abdomen Exam: Positive: BS Hypoactive, Soft, Other (4 surgical incision sites with gazue clean, dry, intact. No edema, erythema, ecchymosis around surgical sites.), Negative: Tenderness Extremity Exam: Positive: Normal pulses, Negative: Clubbing, Cyanosis, Edema Neuro Exam: Positive: Normal Speech Psych Exam: Positive: Mood NL, Oriented x 3 Assessment /Plan Assessment 1. Small bowel obstruction. Pt on IV support. NG tube removed 02/09/17. Had surgery for lysis of adhesions 4 days ago (05/09/17). Appreciate general surgery' s recommendation. Continue with medical management and continue monitoring urine & bowel movement. 2. Constipation. Status post hysterectomy and colectomy, and laparoscopic lysis of adhesions and internal hernias. At baseline, the patient has a bowel movement every 7 to 10 days. Pt had first bowel movement since admission and surgery on 05/11 evening. Continue monitoring and encourage ambulation. 3. Hypophosphatemia. Resolved. Phosphorus level normalized from 2.2 yesterday to 2.8 today after repletion. 4. Hypomagnesemia. Resolved. Level normalized from 1.7 yesterday to 2.1 today after repletion. 5. Hypokalemia due to frequent nausea and vomiting. Resolved with supplement. 6. Abdominal hernia. Corrected with surgery 4 days ago. 7. History of asthma. No exacerbation. Does not require oxygen supplementation. 8. Osteoporosis. 9. Hypothyroidism. On Synthroid. 10. Parkinson's disease. On her oral medications 11. Question of history of coronary artery disease. 12. Bradycardia on admission. When patient presented to emergency room, the patient had a heart rate between 40 to 50s. Currently her average heart rate is around 60s. Medical team to management. 13. Deep venous thrombosis (DVT) prophylaxis, on heparin. Plan/VTE VTE Prophylaxis Ordered?: Yes VS, I&O, 24H, Fishbone Vital Signs/I&O Vital Signs Date Time Temp Pulse Resp B/P (MAP) Pulse Ox O2 Delivery O2 Flow Rate FiO2 05/13/17 06:00 100.0 59 19 102/54 (70) 96 Room Air 05/10/17 06:00 2.0 I&O- Last 24 Hours up to 6 AM 05/13/17 05:59 Intake Total 1660 ml Output Total 800 ml Balance 860 ml Laboratory Data 24H LABS Laboratory Tests 2 05/13/17 06:08: Anion Gap 8, Glomerular Filtration Rate > 60.0, Blood Urea Nitrogen 11, Creatinine 0.73, Sodium Level 141, Potassium Level 3.8, Chloride Level 106, Carbon Dioxide Level 27, Calcium Level 7.8L, Phosphorus Level 2.8#, Magnesium Level 2.1 CBC/BMP Laboratory Tests 05/13/17 06:08 Red Blood Count 3.63 L, Mean Corpuscular Volume 83.1, Mean Corpuscular Hemoglobin 28.0, Mean Corpuscular Hemoglobin Concent 33.7, Red Cell Distribution Width 13.9, Calcium Level 7.8 L ISABEL JARA DO May 13, 2017 10:58
[2017-05-13 14:00] VITALS: BP 145/76
[2017-05-13] MEDS: KCL 20MEQ IN D5/0.45NS 1000ML 1,000 ML IV SCH (17:58)
[2017-05-13 22:00] VITALS: BP 140/77
[2017-05-14 06:00] VITALS: BP 109/64
[2017-05-14 06:01] LABS: MEAN CORPUSCULAR HEMOGLOBIN 28.2 pg (27.0-33.0); MEAN CORPUSCULAR HGB CONC 33.3 g/dl (32.0-36.5); MEAN CORPUSCULAR VOLUME 84.7 fl (80.0-96.0); RED CELL DISTRIBUTION WIDTH 13.8 % (11.5-14.5); WHITE BLOOD COUNT 6.7 K/mm3 (4.0-10.0)
[2017-05-14 06:16] LABS: ANION GAP 9 MEQ/L (8-16); BLOOD UREA NITROGEN 8 MG/DL (7-18); CALCIUM LEVEL 8.5 MG/DL (8.8-10.2); CARBON DIOXIDE LEVEL 26 MEQ/L (21-32); CHLORIDE LEVEL 106 MEQ/L (98-107); CREATININE FOR GFR 0.86 MG/DL (0.55-1.02); GLOMERULAR FILTRATION RATE > 60.0 (>45); GLUCOSE, FASTING 94 MG/DL (80-110); MAGNESIUM LEVEL 2.1 MG/DL (1.8-2.4); PHOSPHORUS LEVEL 2.8 MG/DL (2.5-4.9); POTASSIUM SERUM 3.9 MEQ/L (3.5-5.1); SODIUM LEVEL 141 MEQ/L (136-145)
[2017-05-14] MEDS: LEVOTHYROXINE 125MCG TABLET (0.125MG) PO SCH (06:26)
[2017-05-14] MEDS: HEPARIN SOD (PORCINE) 5000 UNITS/ML VIAL SC SCH ×3 (06:27→20:55)
[2017-05-14] MEDS: MIRALAX *UNIT DOSE* 17GM PACKET PO SCH (08:45)
[2017-05-14] MEDS: PANTOPRAZOLE 40MG INJ (PROTONIX) (C9113) IV SCH (08:45)
[2017-05-14] MEDS: SENNA 8.6 MG TAB (SENOKOT) PO SCH ×2 (08:45→20:55)
[2017-05-14] MEDS: TRIHEXYPHENIDYL 2 MG TAB PO SCH ×3 (08:45→20:55)
[2017-05-14] MEDS: ROPINIROLE 4 MG PO SCH ×2 (08:46→20:55)
[2017-05-14 09:19] VITALS: BP 135/80
--- NOTE | 2017-05-14 10:21 | IPNPDOC ---
Subjective Date Seen The patient was seen on 05/14/17. Subjective Chief Complaint/HPI The patient is a 62-year-old female admitted with a reason for visit of Small Bowel Obstruction. Family in room. Pt states she is doing well and has no acute complaints, and no reported events overnight. Is ambulating in the halls. Tolerating full liquids well. States she has not had a BM since 4 days ago (day after surgery), but her baseline bowel movement is 7-10 days. General: Reports: Normal Appetite, Denies: ROS Unobtainable, Chills Constitutional: Denies: Chills, Fever ENT: Denies: Dysphagia Pulmonary: Denies: Dyspnea, Cough Cardiovascular: Denies: Chest Pain, Palpitations, Edema, Lt Headedness Gastrointestinal: Reports: Vomiting, Constipation, Denies: Nausea, Abdominal Pain, Diarrhea Neurological: Denies: Weakness, Numbness, Confusion Psych: Reports: Mood Normal Objective Physical Examination General Exam: Positive: Alert, Cooperative, No Acute Distress Eye Exam: Positive: Conjunctiva & lids normal ENT Exam: Positive: Atraumatic, Mucous membr. moist/pink Neck Exam: Positive: Supple, Negative: JVD Chest Exam: Positive: Clear to auscultation, Normal air movement, Negative: Rales, Rhonchi, Wheezing Heart Exam: Positive: Rate Normal, Regular Rhythm, Normal S1, Normal S2, Negative: Murmurs Abdomen Exam: Positive: Normal bowel sounds, Soft, Other (4 surgical incision sites with gazue clean, dry, intact. No edema, erythema, ecchymosis around surgical sites.), Negative: Tenderness Extremity Exam: Positive: Normal pulses, Negative: Clubbing, Cyanosis, Edema Neuro Exam: Positive: Normal Speech Psych Exam: Positive: Mood NL, Oriented x 3 Assessment /Plan Assessment 1. Small bowel obstruction. Pt on IV support. NG tube removed 02/09/17. Had surgery for lysis of adhesions 5 days ago (05/09/17). Appreciate general surgery' s recommendation. Continue with medical management and continue monitoring urine & bowel movement. 2. Constipation. Status post hysterectomy and colectomy, and laparoscopic lysis of adhesions and internal hernias. At baseline, the patient has a bowel movement every 7 to 10 days. Pt had first bowel movement since admission and surgery on 05/11 evening. No bm since then. Continue monitoring and encourage ambulation. 3. Hypophosphatemia. Resolved with repletion. 4. Hypomagnesemia. Resolved with repletion. 5. Hypokalemia due to frequent nausea and vomiting. Resolved with supplement. 6. Abdominal hernia. Corrected with surgery 5 days ago. 7. History of asthma. No exacerbation. Does not require oxygen supplementation. 8. Osteoporosis. 9. Hypothyroidism. On Synthroid. 10. Parkinson's disease. On her oral medications 11. Question of history of coronary artery disease. 12. Bradycardia on admission. When patient presented to emergency room, the patient had a heart rate between 40 to 50s. Currently her average heart rate is around 60s. Medical team to management. 13. Deep venous thrombosis (DVT) prophylaxis, on heparin. Plan/VTE VTE Prophylaxis Ordered?: Yes VS, I&O, 24H, Fishbone Vital Signs/I&O Vital Signs Date Time Temp Pulse Resp B/P (MAP) Pulse Ox O2 Delivery O2 Flow Rate FiO2 05/14/17 09:19 98.5 65 20 135/80 (98) 97 Room Air 05/10/17 06:00 2.0 I&O- Last 24 Hours up to 6 AM 05/14/17 05:59 Intake Total 2740 ml Output Total 950 ml Balance 1790 ml Laboratory Data 24H LABS Laboratory Tests 2 05/14/17 05:41: Anion Gap 9, Glomerular Filtration Rate > 60.0, Blood Urea Nitrogen 8, Creatinine 0.86, Sodium Level 141, Potassium Level 3.9, Chloride Level 106, Carbon Dioxide Level 26, Calcium Level 8.5L, Phosphorus Level 2.8, Magnesium Level 2.1 CBC/BMP Laboratory Tests 05/14/17 05:41 Red Blood Count 3.48 L, Mean Corpuscular Volume 84.7, Mean Corpuscular Hemoglobin 28.2, Mean Corpuscular Hemoglobin Concent 33.3, Red Cell Distribution Width 13.8, Calcium Level 8.5 L GME ATTESTATION GME ATTESTATION My preceptor for this patient encounter was physically present in the building during the encounter and was fully available. As needed, all aspects of the patient interview, examination, medical decision making process, and medical care plan development were reviewed and approved by the preceptor. Preceptor is aware and concurs with the plan as stated in the body of this note and will attest to such by his/her cosignature. ISABEL JARA DO May 14, 2017 10:21
[2017-05-14] MEDS: KCL 20MEQ IN D5/0.45NS 1000ML 1,000 ML IV SCH (12:27)
[2017-05-14 14:00] VITALS: BP 118/66
[2017-05-14] MEDS ORDERED: NORCO, ANEXSIA 5/325MG TABLET (HYDROcodone/ACETAMINOPHEN) PO PRN (17:30)
[2017-05-14] MEDS ORDERED: ACETAMINOPHEN TAB 650MG DOSE (2X325MG) PO PRN (17:30)
[2017-05-14 22:00] VITALS: BP_SYST 109; BP_SYST 133; BP_DIAS 66; BP_DIAS 80
[2017-05-15] MEDS: HEPARIN SOD (PORCINE) 5000 UNITS/ML VIAL SC SCH ×3 (05:47→22:02)
[2017-05-15] MEDS: LEVOTHYROXINE 125MCG TABLET (0.125MG) PO SCH (05:48)
[2017-05-15 06:00] VITALS: BP 104/59
[2017-05-15] MEDS: SENNA 8.6 MG TAB (SENOKOT) PO SCH ×2 (09:49→20:26)
[2017-05-15] MEDS: PANTOPRAZOLE 40MG TAB (PROTONIX) PO SCH (09:49)
[2017-05-15] MEDS: TRIHEXYPHENIDYL 2 MG TAB PO SCH ×3 (09:49→20:25)
[2017-05-15] MEDS: ROPINIROLE 4 MG PO SCH ×2 (09:49→20:26)
[2017-05-15] MEDS: MIRALAX *UNIT DOSE* 17GM PACKET PO SCH (09:49)
--- NOTE | 2017-05-15 11:21 | IPNPDOC ---
Subjective Date Seen The patient was seen on 05/15/17. Subjective Chief Complaint/HPI Patient seen and examined at bedside this morning. States that she has been passing a lot of gas this morning, and has already ambulated 3 times around the corridor. In addition, the patient states that she was able to eat a regular breakfast this morning without any acute complaints. No acute overnight events noted. Objective Physical Examination General Exam: Positive: Alert, Cooperative, No Acute Distress ENT Exam: Positive: Atraumatic, Mucous membr. moist/pink Neck Exam: Negative: JVD Chest Exam: Positive: Clear to auscultation, Normal air movement, Negative: Rales, Rhonchi, Wheezing Heart Exam: Positive: Rate Normal, Regular Rhythm, Normal S1, Normal S2 Abdomen Exam: Positive: Soft, Negative: Tenderness Extremity Exam: Negative: Tenderness, Swelling Psych Exam: Positive: Oriented x 3 Assessment /Plan Plan/VTE VTE Prophylaxis Ordered?: Yes Plan Small Bowel Obstruction 2/2 Adhesion s/p Lysis of Adhesions on 05/09/17 NG Tube discontinued on 05/12 Patient's diet has been slowly advanced since surgery--She was started on a regular diet yesterday She has had 1 loose BM since surgery on 05/11 She notes today that she has been, "passing a lot of gas this morning" Denies any abdominal pain, or any nausea/vomiting We will cont to encourage patient to be OOB, and ambulate Continue current bowel regimen Cont to await return of bowel function Appreciate surgical input Electrolyte Abnormalitis 2/2 above, resolved s/p repletion Hx of Asthma, stable Albuterol prn Parkinson's Disease Cont current regimen Hypothyroidism Continue levothyroxine GERD Protonix DVT Prophylaxis Heparin SC Disposition--we will anticipate return of bowel function, and plan to DC home thereafter. VS, I&O, 24H, Fishbone Vital Signs/I&O Vital Signs Date Time Temp Pulse Resp B/P (MAP) Pulse Ox O2 Delivery O2 Flow Rate FiO2 05/15/17 06:00 96.9 53 16 104/59 (74) 97 Room Air 05/10/17 06:00 2.0 I&O- Last 24 Hours up to 6 AM 05/15/17 06:00 Intake Total 2240 ml Output Total 1050 ml Balance 1190 ml BRYNN RO MD May 15, 2017 11:21
[2017-05-15 14:00] VITALS: BP 127/70
[2017-05-15] MEDS ORDERED: GI COCKTAIL 50ML BTL(HYOSCYAMINE/MAALOX/LIDOCAINE VISCOUS)(1:3:1) PO PRN (18:15)
[2017-05-15 22:00] VITALS: BP 134/78
[2017-05-16 06:00] VITALS: BP 126/73
[2017-05-16] MEDS: LEVOTHYROXINE 125MCG TABLET (0.125MG) PO SCH (06:12)
[2017-05-16] MEDS: HEPARIN SOD (PORCINE) 5000 UNITS/ML VIAL SC SCH (06:12)
[2017-05-16] MEDS: ROPINIROLE 4 MG PO SCH (09:10)
[2017-05-16] MEDS: MIRALAX *UNIT DOSE* 17GM PACKET PO SCH (09:10)
[2017-05-16] MEDS: PANTOPRAZOLE 40MG TAB (PROTONIX) PO SCH (09:10)
[2017-05-16] MEDS: TRIHEXYPHENIDYL 2 MG TAB PO SCH (09:10)
[2017-05-16] MEDS: SENNA 8.6 MG TAB (SENOKOT) PO SCH (09:10)
[2017-05-16] MEDS ORDERED: MAGNESIUM CITRATE 300 ML BTL PO ONE (11:45)
--- NOTE | 2017-05-19 23:08 | DS.PDOC ---
Discharge Summary General Date of Admission May 05, 2017 at 19:25 Date of Discharge 05/16/17 Primary Care Physician: Kelly Perkins Attending Physician: BRYNN RO MD Specialist/Consultants Involve: JENNY JUAN DO Discharge Summary PROCEDURES PERFORMED DURING STAY: Laparoscopic lysis of adhesions and release of internal hernia. ADMITTING DIAGNOSES: 1. Small Bowel Obstruction 2. Abdominal Hernia DISCHARGE DIAGNOSES: 1. Small Bowel Obstruction COMPLICATIONS/CHIEF COMPLAINT: Nausea, Vomiting, Constipation HISTORY OF PRESENT ILLNESS: Ms. Medina presented to [facility] ED with nausea, vomiting of brown color, abdominal pain, and constipation worse than her baseline bowel movement of about once a week. Symptoms associated with abdominal and back pain, and loss of appetite. Pt denied blood in stool, weight loss, fever, chills, chest pain, shortness of breath, similar symptoms in the past, and recent travel or sick contacts. PMH is significant for abdominal surgeries including small bowel resection for endometriosis and hysterectomy. CT of the abdomen confirmed partial small bowel obstruction and two midline ventral hernias. Pt was also noted to be bradycardic at HR of 46 on admission, and thus B-Blockers were held and echocardiogram resulted negative for concerns. HOSPITAL COURSE: During her stay, pt had difficulty tolerating some oral medications she regularly takes at home. Patient was made NPO, on IV fluids, and given stool softeners. General surgery was consulted. Pt had frequent hypokalemia during her stay secondary to vomiting that was supplemented. NG tube decompression was also done, and patient was encouraged to ambulate throughout her stay. Her symptoms did not improve, and patient still did not have any BM or pass flatus since admission, thus ultimately requiring surgical intervention. Laparoscopic lysis of adhesions and release of internal hernia was done on 05/09/17. Patient passed flatus and had small BM on 05/11/17. Pt tolerated intake well and diet was advanced. Pt progressed in her recovery and felt improved. Pt was deemed stable and eventually cleared from surgical and medical standpoint. Plan was discussed with patient and was explained to follow up outpatient with PCP and surgery within the week, and to return to ER if symtpoms persist or worsen, or if new acute emergency arises. Pt relayed understanding. DISCHARGE MEDICATIONS: Please see below. ALLERGIES: Please see below. PHYSICAL EXAMINATION ON DISCHARGE: VITAL SIGNS: Please see below. GENERAL: NAD, A&O x3, cooperative HEENT: normocephalic, atraumatic, EOMI NECK: supple, no JVD CARDIOVASCULAR EXAMINATION: RRR, normal S1 and S2 RESPIRATORY EXAMINATION: CTAB, no wheezing ABDOMINAL EXAMINATION: soft, nontender, nondistended. Positive bowel sounds EXTREMITIES: +2 b/l pulses. No edema, clubbing, cyanosis SKIN: No noticeable rash or bleeding NEUROLOGICAL EXAMINATION: Motor and sensation intact PSYCHIATRIC EXAMINATION: normal mood with congruent affect LABORATORY DATA: Please see below. IMAGING: * 05/05/17 CT of abdomen/pelvis: "There has been partial colon resection in the ascending colon. There are tethered small bowel in the left lower quadrant. The bowel proximal to this appears distended. Bowel distal to this is not distended. This may represent partial small bowel obstruction. There is an hepatic cyst as described. There is a hysterectomy and there are surgical clips in the adnexa. Hepatic cyst. There are two midline ventral hernias containing omental fat but no bowel, unchanged from the prior study, one at the umbilicus and the other just above the umbilicus." * 05/06/17 abdomen x-ray: "There are a couple of moderately dilated small bowel loops persisting in the left upper quadrant again suggesting some degree of small bowel obstruction." * 05/08/17 abdomen x-ray: "Some improvement in bowel gas pattern. Persistent dilated small bowel loop is seen in the left mid abdomen." * 05/09/17 abdomen x-ray: "NG tube is seen in the gastric fundus region. There is still two or three loops of air and fluid-filled moderately dilated small bowel in the left upper quadrant consistent with persistent small bowel obstruction. There is a paucity of distal gas. Some stool persists in the right pelvis. There is gas in the rectum." PROGNOSIS: Good ACTIVITY: As tolerated DIET: 2g sodium DISPOSITION: Home, Self-Care. DISCHARGE INSTRUCTIONS: 1. Follow up with PCP in 1 week 2. Follow up with Surgery in 1-2 weeks 3. Return to ER if symptoms persist or worsen, or any new acute emergency arises DISCHARGE CONDITION: Stable TIME SPENT ON DISCHARGE: Greater than 30 minutes. Vital Signs/I&Os Vital Signs Date Time Temp Pulse Resp B/P (MAP) Pulse Ox O2 Delivery O2 Flow Rate FiO2 05/16/17 06:00 99.0 60 18 126/73 (90) 95 Room Air Discharge Medications Scheduled (Ropinirole ER) 4 Mg Tab, 4 MG PO QAM, (Reported) (Ropinirole ER) 4 Mg Tab, 8 MG PO QHS, (Reported) (B Complex) 1 Tab Tab, 1 TAB PO DAILY, (Reported) Cholecalciferol (Vitamin D-3) 1,000 Unit Tab, 1,000 UNIT PO DAILY, (Reported) Docusate Sodium (Colace) 100 Mg Cap, 200 MG PO QHS, (Reported) Hydrochlorothiazide W/Triamter (Triamterene/Hydrochloroth 37.5-25 mg) 1 Cap Cap , 1 CAP PO DAILY, (Reported) Levothyroxine Sodium (Levoxyl) 125 Mcg Tab, 125 MCG PO DAILY, (Reported) Metoprolol Tartrate (Metoprolol Tartrate) 25 Mg Tab, 25 MG PO BID, (Reported) Montelukast Sodium (Montelukast Sodium) 10 Mg Tab, 10 MG PO DAILY, (Reported) Omeprazole (Omeprazole) 20 Mg Cap, 20 MG PO BID, (Reported) Pravastatin Sod (Pravastatin Sodium) 40 Mg Tab, 40 MG PO QHS, (Reported) Trihexyphenidyl HCl (Trihexyphenidyl HCl) 2 Mg Tab, 2 MG PO TID, (Reported) Scheduled PRN Aspirin (Aspirin) 325 Mg Tab, 325 MG PO DAILY PRN for HEADACHE, (Reported) Allergies Coded Allergies: No Known Allergies (Verified , 03/25/03) GME ATTESTATION GME ATTESTATION My preceptor for this patient encounter was physically present in the building during the encounter and was fully available. As needed, all aspects of the patient interview, examination, medical decision making process, and medical care plan development were reviewed and approved by the preceptor. Preceptor is aware and concurs with the plan as stated in the body of this note and will attest to such by his/her cosignature. ISABEL JARA DO May 19, 2017 23:08
== END 2017-05-16 12:31 | disposition home or self-care (01) | DRG 224 ==
LOC: M ED 14:15 → M ED INP 19:25 → M MSPAV 22:31
PROVIDERS: ADMIT Internal Medicine; ATTEND Internal Medicine
PROC: 0DN84ZZ Release Small Intestine, Percutaneous Endoscopic Approach (ICD-10-PCS; principal; 2017-05-09 09:00)
DX: K43.0 Incisional hernia with obstruction, without gangrene (principal); G20 Parkinson's disease; E66.9 Obesity, unspecified; Z68.33 Body mass index [BMI] 33.0-33.9, adult; K59.00 Constipation, unspecified; E89.0 Postprocedural hypothyroidism; J45.909 Unspecified asthma, uncomplicated; M19.90 Unspecified osteoarthritis, unspecified site; E78.5 Hyperlipidemia, unspecified; E83.39 Other disorders of phosphorus metabolism; E83.42 Hypomagnesemia; R00.1 Bradycardia, unspecified; E87.6 Hypokalemia; K21.9 Gastro-esophageal reflux disease without esophagitis; M81.0 Age-related osteoporosis without current pathological fracture; Z90.710 Acquired absence of both cervix and uterus; Z79.899 Other long term (current) drug therapy; Z85.850 Personal history of malignant neoplasm of thyroid; Z90.49 Acquired absence of other specified parts of digestive tract; Z79.82 Long term (current) use of aspirin

== ENCOUNTER → 2017-11-24 | Outpatient (CLI) | payer BC ==
[2017-11-24 09:00] LABS: HEMATOCRIT 37.2 % (36.0-47.0); HEMOGLOBIN 11.3 g/dl (12.0-16.0); MEAN CORPUSCULAR HEMOGLOBIN 24.3 pg (27.0-33.0); MEAN CORPUSCULAR HGB CONC 30.4 g/dl (32.0-36.5); PLATELET COUNT, AUTOMATED 251 10^3/uL (150-450); RED BLOOD COUNT 4.65 10^6/uL (4.00-5.40); RED CELL DISTRIBUTION WIDTH 15.9 % (11.5-14.5); WHITE BLOOD COUNT 5.6 10^3/uL (4.0-10.0)
[2017-11-24 09:42] LABS: TOTAL 25(OH) VITAMIN D 42.8 NG/ML (30.0-100.0)
[2017-11-24 09:46] LABS: ALBUMIN 3.6 GM/DL (3.2-5.2); ALBUMIN/GLOBULIN RATIO 1.03 (1.00-1.93); ALKALINE PHOSPHATASE 67 U/L (45-117); ALT/SGPT 18 U/L (12-78); ANION GAP 7 MEQ/L (8-16); AST/SGOT 13 U/L (7-37); BILIRUBIN,TOTAL 0.3 MG/DL (0.2-1.0); BLOOD UREA NITROGEN 16 MG/DL (7-18); CALCIUM LEVEL 9.3 MG/DL (8.8-10.2); CARBON DIOXIDE LEVEL 32 MEQ/L (21-32); CHLORIDE LEVEL 105 MEQ/L (98-107); CHOLESTEROL LEVEL 184 MG/DL (<200); CHOLESTEROL RISK RATIO 2.591 (<5); CREATININE FOR GFR 0.94 MG/DL (0.55-1.30); GLOMERULAR FILTRATION RATE > 60.0 (>45); GLUCOSE, FASTING 97 MG/DL (70-100); HDL CHOLESTEROL 71 MG/DL (>40); NON-HDL-C 113 MG/DL; POTASSIUM SERUM 3.5 MEQ/L (3.5-5.1); SODIUM LEVEL 144 MEQ/L (136-145); THYROID STIMULATING HORMONE 0.557 uIU/ML (0.358-3.740); TOTAL PROTEIN 7.1 GM/DL (6.4-8.2); TRIGLYCERIDES LEVEL 115 MG/DL (<150)
== END ==
LOC: M LAB 08:39
DX: I10 Essential (primary) hypertension (principal); R53.83 Other fatigue; I48.91 Unspecified atrial fibrillation
CPT/HCPCS: 93005

== ENCOUNTER → 2020-10-13 | Outpatient (CLI) | payer MEDICARE, BC ==
[~2020-10-13] MED LIST: ASPI-1 PO; B COTAB3 PO; COLA100C5 PO; LEVO125T41 PO; METO1TAB32 PO; METO1TAB87 PO; MONT10TA10 PO; MONT4GRA4 PO; OMEP1CAP73 PO; PRAV40TA2 PO; ROPI4TAB21 PO; TRIA37.53 PO; TRIH0.4E PO; TRIH2TAB3 PO; VITA-121 PO
--- NOTE | 2020-10-13 09:03 | REP ---
INDICATION: HTN- LABS AND EKG FIRST COMPARISON: 03/15/2015 TECHNIQUE: PA and lateral. FINDINGS: The mediastinum and cardiac silhouette are normal. The lung polo are clear and without acute consolidation, effusion, or pneumothorax. Scattered calcified granulomata again noted and unchanged. The skeletal structures are intact and normal. IMPRESSION: No acute cardiopulmonary process. <Electronically signed by Thien Crowe > 10/13/20 0900
[2020-10-13 09:16] LABS: HEMATOCRIT 42.2 % (36.0-47.0); HEMOGLOBIN 14.2 g/dl (12.0-15.5); MEAN CORPUSCULAR HEMOGLOBIN 30.9 pg (27.0-33.0); MEAN CORPUSCULAR HGB CONC 33.6 g/dl (32.0-36.5); MEAN CORPUSCULAR VOLUME 91.9 fl (80.0-96.0); PLATELET COUNT, AUTOMATED 191 10^3/uL (150-450); RED BLOOD COUNT 4.59 10^6/uL (4.00-5.40); WHITE BLOOD COUNT 5.4 10^3/uL (4.0-10.0)
--- NOTE | 2020-10-13 09:31 | ECGEPIP ---
[facility] Test Date: 2020-10-13 Pat Name: ESTEFANY MURILLO Department: Room: - Gender: Female [employer]: RF : [id number] Requested By: Kelly Bush Order Number: [id number] Reading MD: Mehran Rapp Measurements Intervals [place] Rate: 58 P: 66 [place]: 169 QRS: 22 QRSD: 109 T: 43 QT: 438 QTc: 433 Interpretive Statements Sinus bradycardia Low voltages with slow precordial R wave progression, persistent S waves in V5 a and V6; body habitus versus pulmonary disease. Nonspecific ST/T wave abnormalities more prominent than 11/24/17 Clinical correlation advised. Electronically Signed on 10-13-2020 9:31:20 EST by Mehran Rapp
[2020-10-13 09:51] LABS: ALBUMIN 3.6 GM/DL (3.2-5.2); BILIRUBIN,TOTAL 0.3 MG/DL (0.2-1.0); CALCIUM LEVEL 9.5 MG/DL (8.8-10.2); CHOLESTEROL RISK RATIO 2.984 (<5); GLOMERULAR FILTRATION RATE 59.2 (>45); POTASSIUM SERUM 3.3 MEQ/L (3.5-5.1); THYROID STIMULATING HORMONE 0.114 uIU/ML (0.358-3.740); TOTAL PROTEIN 6.9 GM/DL (6.4-8.2)
[2020-10-13 10:51] LABS: TOTAL 25(OH) VITAMIN D 56.6 NG/ML (30.0-100.0)
== END ==
LOC: M LAB 08:24
PROVIDERS: ATTEND Family Medicine
DX: R53.83 Other fatigue (principal); I10 Essential (primary) hypertension; E03.9 Hypothyroidism, unspecified; Z79.899 Other long term (current) drug therapy

== ENCOUNTER → 2021-12-21 | Outpatient (CLI) | payer MEDICARE, BC ==
[~2021-12-21] MED LIST changes: -MONT10TA10 PO; +MONT10TA97 PO
[2021-12-21 13:53] LABS: PLATELET COUNT, AUTOMATED 214 10^3/uL (150-450)
[2021-12-21 13:55] LABS: COLLAGEN EPINEPHRINE 112 SECONDS (74-162)
[2021-12-21 14:03] LABS: PROTHROMBIN TIME 13.6 SECONDS (12.7-14.5)
[2021-12-21 14:04] LABS: PARTIAL THROMBOPLASTIN TIME 33.9 SECONDS (25.9-37.0)
== END ==
LOC: M PLALAB 10:14
PROVIDERS: ATTEND Physician Assistant Surgical
DX: M48.07 Spinal stenosis, lumbosacral region (principal)

== ENCOUNTER → 2022-02-10 | Outpatient (CLI) | payer MEDICARE, BC | LOC: M WHC 14:05 | PROVIDERS: ATTEND Family Medicine | DX: Z12.31 Encounter for screening mammogram for malignant neoplasm of breast (principal) ==

== ENCOUNTER → 2022-05-05 | Outpatient (CLI) | payer MEDICARE, BC ==
[~2022-05-05] MED LIST changes: -TRIA37.53 PO; +TRIA37.577 PO
[2022-05-05 17:19] LABS: ALBUMIN 3.6 GM/DL (3.2-5.2); ALT/SGPT 8 U/L (12-78); BILIRUBIN,TOTAL 0.3 MG/DL (0.2-1.0); BLOOD UREA NITROGEN 29 MG/DL (7-18); CALCIUM LEVEL 9.5 MG/DL (8.8-10.2); CARBON DIOXIDE LEVEL 30 MEQ/L (21-32); CHLORIDE LEVEL 103 MEQ/L (98-107); CREATININE FOR GFR 0.82 MG/DL (0.55-1.30); GLOMERULAR FILTRATION RATE > 60.0 (>45); GLUCOSE, FASTING 72 MG/DL (70-100); POTASSIUM SERUM 3.1 MEQ/L (3.5-5.1); SODIUM LEVEL 139 MEQ/L (136-145); THYROID STIMULATING HORMONE 0.134 uIU/ML (0.358-3.740); TOTAL PROTEIN 6.5 GM/DL (6.4-8.2)
[2022-05-05 17:45] LABS: THYROGLOBULIN ANTIBODY < 15.0 U/ML (<60.0); TOTAL 25(OH) VITAMIN D 48.4 NG/ML (30.0-100.0)
== END ==
LOC: M WUC 11:16
PROVIDERS: ATTEND Nurse Practitioner Family
DX: C73 Malignant neoplasm of thyroid gland (principal); E89.0 Postprocedural hypothyroidism

== ENCOUNTER → 2022-06-02 | Outpatient (CLI) | payer MEDICARE, BC ==
[~2022-06-02] MED LIST changes: +ADV250INH INH; +CARB25TA9 PO; +D-101000 PO; +EQL50TAB2 PO; +PROAAER10 INH
== END ==
LOC: M LABSMTC 09:17
PROVIDERS: ATTEND Anesthesiology
DX: Z01.818 Encounter for other preprocedural examination (principal); Z11.52 Encounter for screening for COVID-19

== ENCOUNTER → 2022-07-20 | Outpatient (CLI) | payer MEDICARE, BC ==
[~2022-07-20] MED LIST changes: +CHOL25TA2 PO; +CURC500C PO; +LEVO112T2 PO; +PROA1AER2 IN; +VITA500064 PO
== END ==
LOC: M LABSMTC 10:23
PROVIDERS: ATTEND Anesthesiology
DX: Z01.818 Encounter for other preprocedural examination (principal); Z11.52 Encounter for screening for COVID-19

== ENCOUNTER 2022-07-23 07:21 | Day surgery (SDC) | payer MEDICARE, BC ==
[~2022-07-23] VITALS: Ht 160 cm; Wt 64.4 kg
[2022-07-23] MEDS ORDERED: LIDOCAINE 2% 100MG/5ML SDV (FOR ANES.) As Ordered ONE (08:37)
[2022-07-23] MEDS ORDERED: GLYCOPYRROLATE INJ 0.2 MG/ML 2 ML VIAL As Ordered ONE ×2 (08:39→08:52)
[2022-07-23] MEDS ORDERED: propofoL 200 MG/20 ML VIAL As Ordered ONE (08:52)
[2022-07-23 09:13] VITALS: BP 135/63
== END 2022-07-23 09:34 | disposition home or self-care (01) ==
LOC: M OPP 07:21
PROVIDERS: ATTEND Internal Medicine Gastroenterology
DX: Z12.11 Encounter for screening for malignant neoplasm of colon (principal); K64.0 First degree hemorrhoids; Z79.02 Long term (current) use of antithrombotics/antiplatelets; Z79.83 Long term (current) use of bisphosphonates; Z79.890 Hormone replacement therapy; Z79.899 Other long term (current) drug therapy; I10 Essential (primary) hypertension; E03.9 Hypothyroidism, unspecified; E78.00 Pure hypercholesterolemia, unspecified; G47.30 Sleep apnea, unspecified; G20 Parkinson's disease; J45.909 Unspecified asthma, uncomplicated; Z85.850 Personal history of malignant neoplasm of thyroid; Z90.49 Acquired absence of other specified parts of digestive tract; Z80.3 Family history of malignant neoplasm of breast; Z80.41 Family history of malignant neoplasm of ovary

== ENCOUNTER → 2023-04-01 | Outpatient (CLI) | payer MEDICARE, BC ==
[~2023-04-01] MED LIST changes: -MONT4GRA4 PO; +MONT4GRA7 PO; -VITA500064 PO; +VITA500065 PO
[2023-04-01 16:50] LABS: HEMATOCRIT 35.6 % (36.0-47.0); HEMOGLOBIN 11.6 g/dl (12.0-15.5); MEAN CORPUSCULAR HEMOGLOBIN 30.4 pg (27.0-33.0); MEAN CORPUSCULAR HGB CONC 32.6 g/dl (32.0-36.5); MEAN CORPUSCULAR VOLUME 93.4 fl (80.0-96.0); PLATELET COUNT, AUTOMATED 201 10^3/uL (150-450); RED BLOOD COUNT 3.81 10^6/uL (4.00-5.40); WHITE BLOOD COUNT 5.9 10^3/uL (4.0-10.0)
[2023-04-01 17:11] LABS: HEMOGLOBIN A1c 5.1 % (4.0-6.0)
[2023-04-01 17:18] LABS: TOTAL 25(OH) VITAMIN D 47.9 NG/ML (20.0-100.0)
[2023-04-01 17:20] LABS: ALBUMIN 3.1 G/DL (3.2-5.2); ALKALINE PHOSPHATASE 60 U/L (46-116); ALT/SGPT < 9 U/L (7.0-40); AST/SGOT 14 U/L (<34); BILIRUBIN,TOTAL 0.4 MG/DL (0.3-1.2); BLOOD UREA NITROGEN 26 MG/DL (9-23); CALCIUM LEVEL 8.8 MG/DL (8.3-10.6); CARBON DIOXIDE LEVEL 28 MMOL/L (20-31); CHLORIDE LEVEL 109 MMOL/L (98-107); CHOLESTEROL LEVEL 158 MG/DL (<200); CHOLESTEROL RISK RATIO 2.66 (<5); CREATININE FOR GFR 0.86 MG/DL (0.55-1.30); GLOMERULAR FILTRATION RATE > 60.0 (>45); GLUCOSE, FASTING 89 MG/DL (74-106); HDL CHOLESTEROL 59.2 MG/DL (>40); NON-HDL-C 98.8 MG/DL; POTASSIUM SERUM 3.7 MMOL/L (3.5-5.1); SODIUM LEVEL 144 MMOL/L (136-145); TOTAL PROTEIN 5.6 G/DL (5.7-8.2); TRIGLYCERIDES LEVEL 119 MG/DL (<150)
== END ==
LOC: M WUC 12:11
PROVIDERS: ATTEND Family Medicine
DX: I10 Essential (primary) hypertension (principal); R53.83 Other fatigue; E03.9 Hypothyroidism, unspecified; D14.30 Benign neoplasm of unspecified bronchus and lung; Z79.899 Other long term (current) drug therapy

== ENCOUNTER → 2023-04-05 | Outpatient (CLI) | payer MEDICARE, BC | LOC: M EKG 06:10 | PROVIDERS: ATTEND Family Medicine | DX: R00.1 Bradycardia, unspecified (principal); I10 Essential (primary) hypertension; R53.83 Other fatigue; E03.9 Hypothyroidism, unspecified ==

== ENCOUNTER → 2023-06-10 | Outpatient (CLI) | payer MEDICARE, BC | LOC: M WHC 08:34 | PROVIDERS: ATTEND Family Medicine | DX: Z12.31 Encounter for screening mammogram for malignant neoplasm of breast (principal) ==

== ENCOUNTER 2023-10-21 15:09 | Emergency (ER) | payer MEDICARE, BC ==
[~2023-10-21] VITALS: Ht 160 cm; Wt 59.1 kg
[2023-10-21] MEDS ORDERED: NS 1,000 ML IV ONE (16:15)
[2023-10-21 16:24] LABS: BASO # 0.1 10^3/uL (0.0-0.2); BASO % 0.7 % (0.0-1.0); EOS # 0.2 10^3/uL (0.0-0.5); EOS % 3.1 % (0.0-3.0); HEMATOCRIT 40.9 % (36.0-47.0); HEMOGLOBIN 14.1 g/dl (12.0-15.5); LYMPH # 1.8 10^3/uL (1.5-5.0); LYMPH % 25.5 % (24.0-44.0); MEAN CORPUSCULAR HGB CONC 34.5 g/dl (32.0-36.5); MEAN CORPUSCULAR VOLUME 92.7 fl (80.0-96.0); MONO # 0.4 10^3/uL (0.0-0.8); NEUTROPHILS # 4.4 10^3/uL (1.5-8.5); NEUTROPHILS % 64.4 % (36.0-66.0); PLATELET COUNT, AUTOMATED 214 10^3/uL (150-450); RED BLOOD COUNT 4.41 10^6/uL (4.00-5.40); WHITE BLOOD COUNT 6.9 10^3/uL (4.0-10.0)
[2023-10-21 16:48] LABS: BLOOD UREA NITROGEN 31 MG/DL (9-23); CALCIUM LEVEL 9.3 MG/DL (8.3-10.6); CARBON DIOXIDE LEVEL 28 MMOL/L (20-31); CHLORIDE LEVEL 105 MMOL/L (98-107); CREATININE FOR GFR 0.85 MG/DL (0.55-1.30); GLOMERULAR FILTRATION RATE > 60.0 (>45); GLUCOSE, FASTING 108 MG/DL (74-106); MAGNESIUM LEVEL 1.9 MG/DL (1.8-2.4); POTASSIUM SERUM 3.3 MMOL/L (3.5-5.1); SODIUM LEVEL 141 MMOL/L (136-145)
[2023-10-21 16:52] LABS: THYROID STIMULATING HORMONE 6.724 uIU/ML (0.55-4.78)
[2023-10-21 16:57] LABS: CK-MB VALUE MASS < 1.0 NG/ML (<3.6)
[2023-10-21 17:01] LABS: CPK CREATINE PHOSPHOKINASE 81 U/L (34-145); MB/CK RELATIVE INDEX 1.23 (< OR =4)
[2023-10-21 18:49] VITALS: BP 123/70; TEMP 97.6; O2SAT 98
== END 2023-10-21 19:04 | disposition home or self-care (01) ==
LOC: M ED 15:09
DX: I95.1 Orthostatic hypotension (principal); R00.1 Bradycardia, unspecified; G20.C Parkinsonism, unspecified; I10 Essential (primary) hypertension; E78.5 Hyperlipidemia, unspecified; G43.909 Migraine, unspecified, not intractable, without status migrainosus; Z82.0 Family history of epilepsy and other diseases of the nervous system; Z79.899 Other long term (current) drug therapy; Z79.890 Hormone replacement therapy; Z79.82 Long term (current) use of aspirin; Z79.51 Long term (current) use of inhaled steroids

== ENCOUNTER 2024-05-06 18:03 | Emergency (ER) | payer MEDICARE, BC ==
[~2024-05-06] VITALS: Ht 162.6 cm; Wt 55.3 kg
[2024-05-06 18:27] VITALS: TEMP 97.4
[2024-05-06 19:30] LABS: BASO % 0.4 % (0.0-1.0); EOS # 0.2 10^3/uL (0.0-0.5); EOS % 1.5 % (0.0-3.0); HEMATOCRIT 43.7 % (36.0-47.0); HEMOGLOBIN 15.3 g/dl (12.0-15.5); LYMPH # 1.2 10^3/uL (1.5-5.0); LYMPH % 12.1 % (24.0-44.0); MEAN CORPUSCULAR HEMOGLOBIN 31.2 pg (27.0-33.0); MEAN CORPUSCULAR VOLUME 89.2 fl (80.0-96.0); MONO # 0.5 10^3/uL (0.0-0.8); MONO % 4.4 % (2.0-8.0); NEUTROPHILS # 8.2 10^3/uL (1.5-8.5); NEUTROPHILS % 81.3 % (36.0-66.0); PLATELET COUNT, AUTOMATED 301 10^3/uL (150-450); WHITE BLOOD COUNT 10.1 10^3/uL (4.0-10.0)
[2024-05-06 19:56] LABS: ALKALINE PHOSPHATASE 123 U/L (46-116); ALT/SGPT 20 U/L (7.0-40); AST/SGOT 14 U/L (<34); BILIRUBIN,DIRECT 0.2 MG/DL (<0.4); BILIRUBIN,TOTAL 0.7 MG/DL (0.3-1.2); BLOOD UREA NITROGEN 33 MG/DL (9-23); CARBON DIOXIDE LEVEL 23 MMOL/L (20-31); CHLORIDE LEVEL 106 MMOL/L (98-107); CK-MB VALUE MASS 2.1 NG/ML (<3.6); CREATININE FOR GFR 0.71 MG/DL (0.55-1.30); GLOMERULAR FILTRATION RATE > 60.0 (>45); GLUCOSE, FASTING 83 MG/DL (74-106); POTASSIUM SERUM 3.5 MMOL/L (3.5-5.1); SODIUM LEVEL 139 MMOL/L (136-145); TOTAL PROTEIN 7.3 G/DL (5.7-8.2)
[2024-05-06 19:58] LABS: THYROID STIMULATING HORMONE 8.792 uIU/ML (0.55-4.78)
[2024-05-06 20:15] LABS: CPK CREATINE PHOSPHOKINASE 59 U/L (34-145); MB/CK RELATIVE INDEX 3.55 (< OR =4)
[2024-05-06] MEDS: cefTRIAXone SOD 1 GM in D5W MINI-BAG PLUS 50 ML IV ONE (20:37)
[2024-05-06 21:13] LABS: CK-MB VALUE MASS 1.7 NG/ML (<3.6)
[2024-05-06 21:14] LABS: MB/CK RELATIVE INDEX 3.2 (< OR =4)
[2024-05-06 22:30] VITALS: BP 154/85
[2024-05-06] MEDS: SINEMET 25-100 MG TAB PO ONE (22:31)
[2024-05-06] MEDS: TRIHEXYPHENIDYL 2 MG TAB PO ONE (22:31)
[2024-05-06] MEDS: PRAVASTATIN 20 MG TAB PO ONE (22:31)
[2024-05-06] MEDS: rOPINIRole 2MG TAB PO ONE (22:31)
[2024-05-06] MEDS ORDERED: CEFD300C PO (22:40)
[2024-05-06 22:48] VITALS: O2SAT 98
== END 2024-05-06 23:12 | disposition home or self-care (01) ==
LOC: M ED 18:03 → EDBD 18:03 → M ED 23:12
DX: N39.0 Urinary tract infection, site not specified (principal); I25.2 Old myocardial infarction; I10 Essential (primary) hypertension; J45.909 Unspecified asthma, uncomplicated; K21.9 Gastro-esophageal reflux disease without esophagitis; E78.5 Hyperlipidemia, unspecified; Z79.1 Long term (current) use of non-steroidal anti-inflammatories (NSAID); Z79.51 Long term (current) use of inhaled steroids; Z79.899 Other long term (current) drug therapy
CPT/HCPCS: 70450; 71045; 80048; 80076; 81001; 82550; 82553; 84443; 84484; 85025; 87088; 87186; 93005; 93041; 94760; 96365; 96366; 99285; J0696

== ENCOUNTER → 2024-07-11 | Outpatient (CLI) | payer MEDICARE, BC ==
[~2024-07-11] MED LIST changes: +CEFD300C PO
== END ==
LOC: M SOG 10:10
PROVIDERS: ATTEND Physician Assistant
DX: M79.645 Pain in left finger(s) (principal)

== ENCOUNTER → 2024-07-16 | Outpatient (CLI) | payer MEDICARE, BC ==
[2024-07-16 13:11] LABS: HEMATOCRIT 41.4 % (36.0-47.0); HEMOGLOBIN 13.9 g/dl (12.0-15.5); MEAN CORPUSCULAR HEMOGLOBIN 31.8 pg (27.0-33.0); MEAN CORPUSCULAR HGB CONC 33.6 g/dl (32.0-36.5); MEAN CORPUSCULAR VOLUME 94.7 fl (80.0-96.0); PLATELET COUNT, AUTOMATED 269 10^3/uL (150-450); RED BLOOD COUNT 4.37 10^6/uL (4.00-5.40); WHITE BLOOD COUNT 6.5 10^3/uL (4.0-10.0)
[2024-07-16 13:35] LABS: ALBUMIN 3.3 G/DL (3.2-5.2); ALKALINE PHOSPHATASE 85 U/L (35-104); ALT/SGPT < 9 U/L (7.0-40); AST/SGOT 13 U/L (<34); BILIRUBIN,TOTAL 0.5 MG/DL (0.3-1.2); BLOOD UREA NITROGEN 35 MG/DL (9-23); CALCIUM LEVEL 9.9 MG/DL (8.3-10.6); CARBON DIOXIDE LEVEL 30 MMOL/L (20-31); CHLORIDE LEVEL 107 MMOL/L (98-107); CHOLESTEROL LEVEL 171 MG/DL (<200); CHOLESTEROL RISK RATIO 2.93 (<5); CREATININE FOR GFR 1.01 MG/DL (0.55-1.30); GLOMERULAR FILTRATION RATE 57.9 (>45); GLUCOSE, FASTING 77 MG/DL (74-106); HDL CHOLESTEROL 58.2 MG/DL (>40); LDL CHOLESTEROL 91.4 MG/DL (<100); NON-HDL-C 112.8 MG/DL; POTASSIUM SERUM 3.8 MMOL/L (3.5-5.1); SODIUM LEVEL 142 MMOL/L (136-145); TOTAL PROTEIN 6.2 G/DL (5.7-8.2); TRIGLYCERIDES LEVEL 107 MG/DL (<150)
[2024-07-16 13:38] LABS: THYROID STIMULATING HORMONE 46.035 uIU/ML (0.55-4.78); TOTAL 25(OH) VITAMIN D 97.5 NG/ML (20.0-100.0)
[2024-07-16 13:54] LABS: HEMOGLOBIN A1c 5.2 % (4.0-6.0)
== END ==
LOC: M RAD 11:07
PROVIDERS: ATTEND Family Medicine
DX: I10 Essential (primary) hypertension (principal); E03.9 Hypothyroidism, unspecified; R53.83 Other fatigue

== ENCOUNTER → 2024-07-20 | Outpatient (CLI) | payer MEDICARE, BC | LOC: M WHC 13:12 | PROVIDERS: ATTEND Family Medicine | DX: Z12.31 Encounter for screening mammogram for malignant neoplasm of breast (principal) ==

== ENCOUNTER → 2024-10-01 | Outpatient (CLI) | payer MEDICARE, BC ==
[~2024-10-01] MED LIST changes: -ADV250INH INH; +ADVA1AER9 INH
== END ==
LOC: M SOG 07:53
PROVIDERS: ATTEND Orthopaedic Surgery
DX: M16.11 Unilateral primary osteoarthritis, right hip (principal); M41.9 Scoliosis, unspecified

== ENCOUNTER → 2024-12-27 | Outpatient (CLI) | payer MEDICARE, BC ==
[2024-12-27 14:34] LABS: HEMATOCRIT 44.9 % (36.0-47.0); HEMOGLOBIN 14.9 g/dl (12.0-15.5); MEAN CORPUSCULAR HEMOGLOBIN 30.8 pg (27.0-33.0); MEAN CORPUSCULAR HGB CONC 33.2 g/dl (32.0-36.5); PLATELET COUNT, AUTOMATED 244 10^3/uL (150-450); RED BLOOD COUNT 4.83 10^6/uL (4.00-5.40); WHITE BLOOD COUNT 8.1 10^3/uL (4.0-10.0)
[2024-12-27 14:42] LABS: APPEARANCE, URINE MANUAL CLEAR (CLEAR); COLOR, URINE MANUAL YELLOW (YELLOW)
[2024-12-27 14:44] LABS: BILIRUBIN, URINE MANUAL NEGATIVE (NEGATIVE); BLOOD URINE MANUAL NEGATIVE (NEGATIVE); GLUCOSE, URINE (UA) MANUAL NEGATIVE (NEGATIVE); KETONE, URINE MANUAL NEGATIVE (NEGATIVE); LEUKOCYTE ESTERASE, URINE MAN TRACE (NEGATIVE); NITRITE, URINE MANUAL NEGATIVE (NEGATIVE); PH,URINE MAN 7.5 UNITS (5.0 - 7.0); PROTEIN, URINE MANUAL NEGATIVE (NEGATIVE); UROBILINOGEN, URINE MANUAL NORMAL (NORMAL)
[2024-12-27 14:49] LABS: INR 0.98; PARTIAL THROMBOPLASTIN TIME 29.1 SECONDS (24.8-34.2); PROTHROMBIN TIME 13.3 SECONDS (12.5-14.5)
[2024-12-27 14:51] LABS: BACTERIA, URINE NONE SEEN; HYALINE CAST, URINE NONE SEEN /lpf (0-1); MUCUS, URINE SMALL AMOUNT (NEGATIVE); RBC, URINE 0-1 /hpf (0-3); SQUAMOUS EPITHELIAL CELL URINE SMALL AMOUNT /hpf (SMALL AMT); TRIPLE PHOSPHATE CRYSTAL,URINE SMALL AMOUNT /hpf
[2024-12-27 15:01] LABS: ALBUMIN 3.8 G/DL (3.2-5.2); ALKALINE PHOSPHATASE 84 U/L (35-104); ALT/SGPT < 9 U/L (7.0-40); AST/SGOT 9 U/L (<34); BILIRUBIN,TOTAL 0.8 MG/DL (0.3-1.2); BLOOD UREA NITROGEN 33 MG/DL (9-23); CALCIUM LEVEL 10.3 MG/DL (8.3-10.6); CARBON DIOXIDE LEVEL 28 MMOL/L (20-31); CHLORIDE LEVEL 101 MMOL/L (98-107); CHOLESTEROL LEVEL 199 MG/DL (<200); CHOLESTEROL RISK RATIO 2.33 (<5); CREATININE FOR GFR 0.78 MG/DL (0.55-1.30); GLOMERULAR FILTRATION RATE 82.2 (>45); GLUCOSE, FASTING 86 MG/DL (74-106); HDL CHOLESTEROL 85.4 MG/DL (>40); LDL CHOLESTEROL 94.8 MG/DL (<100); NON-HDL-C 113.6 MG/DL; POTASSIUM SERUM 3.8 MMOL/L (3.5-5.1); SODIUM LEVEL 141 MMOL/L (136-145); TRIGLYCERIDES LEVEL 94 MG/DL (<150)
[2024-12-27 15:02] LABS: THYROID STIMULATING HORMONE 0.021 uIU/ML (0.55-4.78)
[2024-12-27 15:11] LABS: HEMOGLOBIN A1c 4.9 % (4.0-6.0)
== END ==
LOC: M RAD 13:11
PROVIDERS: ATTEND Family Medicine
DX: I10 Essential (primary) hypertension (principal); J44.9 Chronic obstructive pulmonary disease, unspecified; Z79.01 Long term (current) use of anticoagulants

== ENCOUNTER 2025-05-21 17:58 | Emergency (ER) | payer MEDICARE, BC ==
[~2025-05-21] VITALS: Ht 162.6 cm; Wt 57.0 kg
[~2025-05-21 17:58] MED LIST changes: -EQL50TAB2 PO; -PRAV40TA2 PO; +PRAV40TA85 PO; +VITA1TAB82 PO
[2025-05-21 18:30] VITALS: TEMP 96.7
[2025-05-21 21:13] LABS: BASO # 0.1 10^3/uL (0.0-0.2); BASO % 0.8 % (0.0-1.0); EOS # 0.2 10^3/uL (0.0-0.5); EOS % 2.4 % (0.0-3.0); LYMPH # 1.3 10^3/uL (1.5-5.0); LYMPH % 16.1 % (24.0-44.0); MONO # 0.5 10^3/uL (0.0-0.8); MONO % 6.0 % (2.0-8.0); NEUTROPHILS # 5.8 10^3/uL (1.5-8.5); NEUTROPHILS % 74.3 % (36.0-66.0); PLATELET COUNT, AUTOMATED 214 10^3/uL (150-450)
[2025-05-21 21:33] LABS: CALCIUM LEVEL 9.8 MG/DL (8.3-10.6); CARBON DIOXIDE LEVEL 24.0 MMOL/L (20-31); CHLORIDE LEVEL 107.0 MMOL/L (98-107); CREATININE FOR GFR 1.1 MG/DL (0.55-1.30); GLOMERULAR FILTRATION RATE 54.1 (>39); MAGNESIUM LEVEL 1.8 MG/DL (1.8-2.4); POTASSIUM SERUM 3.2 MMOL/L (3.5-5.1); SODIUM LEVEL 145.0 MMOL/L (136-145)
[2025-05-21 21:36] LABS: FREE T4 2.25 NG/DL (0.89-1.76)
[2025-05-21] MEDS: POTASSIUM CHLORIDE 10% LIQ 20MEQ/15ML UDC PO ONE (21:58)
[2025-05-21 22:00] VITALS: BP 131/67; O2SAT 98
[2025-05-21 22:20] LABS: APPEARANCE, URINE CLEAR (CLEAR); BACTERIA, URINE AUTO NEGATIVE (NEGATIVE); BILIRUBIN, URINE AUTO NEGATIVE (NEGATIVE); BLOOD, URINE BLOOD NEGATIVE (NEGATIVE); GLUCOSE, URINE (UA) AUTO NEGATIVE (NEGATIVE); KETONE, URINE AUTO 1+ mg/dL (NEGATIVE); LEUKOCYTE ESTERASE, URINE AUTO NEGATIVE (NEGATIVE); MUCUS, URINE SMALL (NEGATIVE); NITRITE, URINE AUTO NEGATIVE (NEGATIVE); PROTEIN, URINE AUTO NEGATIVE (NEGATIVE); RBC, URINE AUTO 2 /HPF (0-3); SPECIFIC GRAVITY URINE AUTO 1.017 (1.002-1.035); SQUAMOUS EPITHELIAL CELL UR AU 0 /HPF (0-6); UROBILINOGEN, URINE AUTO 0.2 mg/dL (0.0-2.0); WBC, URINE AUTO 1 /HPF (0-3)
== END 2025-05-21 22:42 | disposition home or self-care (01) ==
LOC: M ED 17:58 → EDBD 17:58 → M ED 22:42
DX: S00.03XA Contusion of scalp, initial encounter (principal); R44.3 Hallucinations, unspecified; Y92.019 Unspecified place in single-family (private) house as the place of occurrence of the external cause; Y93.9 Activity, unspecified; Y99.9 Unspecified external cause status; W01.0XXA Fall on same level from slipping, tripping and stumbling without subsequent striking against object, initial encounter; J44.9 Chronic obstructive pulmonary disease, unspecified; E03.9 Hypothyroidism, unspecified; E78.5 Hyperlipidemia, unspecified; E55.9 Vitamin D deficiency, unspecified; Z79.1 Long term (current) use of non-steroidal anti-inflammatories (NSAID); Z79.51 Long term (current) use of inhaled steroids; Z79.2 Long term (current) use of antibiotics; Z79.899 Other long term (current) drug therapy

== ENCOUNTER → 2025-08-22 | Outpatient (CLI) | payer MEDICARE, BC | LOC: M WHC 13:29 | PROVIDERS: ATTEND Student in an Organized Health Care Education/Training Program | DX: Z12.31 Encounter for screening mammogram for malignant neoplasm of breast (principal); M81.0 Age-related osteoporosis without current pathological fracture ==

== ENCOUNTER → 2025-08-27 | Outpatient (CLI) | payer MEDICARE, BC ==
[2025-08-27 12:22] LABS: BASO # 0.1 10^3/uL (0.0-0.2); BASO % 0.9 % (0.0-1.0); EOS # 0.2 10^3/uL (0.0-0.5); EOS % 3.5 % (0.0-3.0); LYMPH # 1.6 10^3/uL (1.5-5.0); LYMPH % 30.0 % (24.0-44.0); MONO # 0.4 10^3/uL (0.0-0.8); MONO % 6.4 % (2.0-8.0); NEUTROPHILS # 3.2 10^3/uL (1.5-8.5); NEUTROPHILS % 59.0 % (36.0-66.0); PLATELET COUNT, AUTOMATED 221 10^3/uL (150-450)
[2025-08-27 12:59] LABS: ALT/SGPT < 9 U/L (7.0-40); AST/SGOT 13 U/L (<34); CALCIUM LEVEL 9.7 MG/DL (8.3-10.6); CARBON DIOXIDE LEVEL 32 MMOL/L (20-31); CHLORIDE LEVEL 101 MMOL/L (98-107); CHOLESTEROL LEVEL 169 MG/DL (<200); CHOLESTEROL RISK RATIO 2.47 (<5); CREATININE FOR GFR 1.03 MG/DL (0.55-1.30); GLOMERULAR FILTRATION RATE 58.5 (>39); LDL CHOLESTEROL 82.7 MG/DL (<100); NON-HDL-C 100.7 MG/DL; POTASSIUM SERUM 3.6 MMOL/L (3.5-5.1); SODIUM LEVEL 143 MMOL/L (136-145); TRIGLYCERIDES LEVEL 90 MG/DL (<150)
[2025-08-27 13:05] LABS: ESTIMATED AVERAGE GLUCOSE 97.0 MG/DL (60-110)
== END ==
LOC: M PLALAB 09:04
PROVIDERS: ATTEND Student in an Organized Health Care Education/Training Program
DX: Z00.00 Encounter for general adult medical examination without abnormal findings (principal); I10 Essential (primary) hypertension; Z79.899 Other long term (current) drug therapy